=== PATIENT | male | born 1960 | race Caucasian/White ===

== ENCOUNTER 2025-02-01 07:17 | Outpatient (CLI) | payer MEDICARE, MEDICAID, SELFPAY ==
[2025-01-18 10:30] VITALS: BMI 31.7
--- NOTE | 2025-01-18 10:31 | PC.NURSE ---
Pre Radiology instructions Report to the outpatient cristóbal wilder on date _02/01/25____ at time ___7:30AM____ for procedure Time: __9:30AM__ YOU MAY BE MONITORED AT HOSPITAL FOR UP TO 4 HOURS AFTER YOUR PROCEDURE. A visitor will be allowed to accompany the patient into the hospital. You and your visitor will be asked to self-screen and do not enter if you have any COVID symptoms. A mask is OPTIONAL within the hospital. Patients are to have no food or drink 6 hours prior to procedure time Driving will be restricted after the procedure, you must have a person to drive you home. Labs will be drawn in preop area and once reviewed, you will be taken to radiology area for procedure. When the procedure is completed, you will be taken to outpatient where you will be monitored for several hours. You may have one visitor in this area. Other than holding anti-coagulants, patient may take other medication(s) as scheduled. Prior to your appointment date patients are instructed to hold anti-coagulants after discussing with ordering provider to stop. If unable to discontinue anti-coagulants please notify radiologist. ? No aspirin or warfarin (Coumadin) for 7 days prior to the procedure. ? No clopidogrel (Plavix), ticagrelor (Brilinta), prasugrel (Effient) or dabigatran (Pradaxa) for 5 days prior to the procedure. ? No rivaroxaban (Xarelto), apixaban (Eliquis), dipyridamole (Aggrenox or Persantine) or cilostazol (Pletal) for 2 days prior to the procedure. Medications to discontinue per physician: ___NONE Date to take last dose: Please leave all valuables, including medications, at home the day of procedure. The hospital will not accept responsibility for valuables. Wear comfortable, loose fitting clothing.? Follow any additional instructions given to you from ordering provider. Telephone instructions given to ____PATIENT and asked if any additional questions and then verbalized understanding. Patient advised to call scheduling provider office or registration scheduling [phone] if any additional questions.
--- NOTE | ~2025-02-01 | CT_ITS ---
EXAMINATION: [id number], CT lumbar spine wo con DATE: 02/01/2025 10:41 INDICATION: Cervical, thoracic and lumbar spinal canal stenosis TECHNIQUE: Informed consent was obtained from the patient. Risks and benefits including bleeding, infection and nerve root injury were discussed with the patient. The patient agreed to proceed. 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 Time out procedure was performed. The skin overlying the lower lumbar spine was sterilely prepped with Betadine. Entry sites were infiltrated with total of 4 cc 1% lidocaine. I nitial attempt was made with a 3.5 22G spinal needle advanced via central approach at the level of L 4. Despite attempts at repositioning bone was continually encountered. The needle was then removed an d attempt made again paracentral approach at the level of L5 which was again unsuccessful encounterin g bone. The needle was removed and sterile bandages were applied to the needle entry sites. The patie nt was transferred to the CT scanner for a cake mixer CT of the lumbar spine in order to identify a suitab le needle entry site. Computed tomography (CT) of the lumbar spine was performed without intravenous contrast. Automated ex posure control and iterative reconstruction technique were employed. The dose-length product was 1045 .00 mGy-cm. Coronal and sagittal reformatted images of the lumbar spine CT were created. Review of th e CT imaging demonstrated complete osseous coverage of the posterior aspect of the central canal thro ughout the lumbar and visualized lower thoracic spine with no evident potential needle entry site and therefore the planned myelogram was canceled. There are no immediate complications. FINDINGS: Instrumented T10-S1 posterior spinal fusion with bilateral vertical valentin and pedicle screws and bilate ral iliac screws. There is a fracture of the left iliac screw occurring at the level of the left sacr oiliac joint which is best appreciated on the lateral fluoroscopic image. There is also been prior L3 -L4, L4-L5 and L5-S1 anterior spinal fusion with interbody bone graft cages with associated screws. A dditional anterior spinal fusion with interbody fusion device at T11-T12. There is extensive solidly fused bone graft extending along the posterior elements from the highest visualized level on CT at T1 1-T12 through the sacrum which also extends across the midline where there been multiple prior shad ctomies. No opening identified in the posterior ossification to allow for needle access into the cent ral canal. There is 3 mm retrolisthesis L2 on L3. Alignment is otherwise normal. Chronic mild likely physiologic anterior wedging at T12 and L1. No acute fracture. Severe disc height loss at T12-L1, L1- L2 and L2-L3. There are hypertrophic endplate osteophytes posteriorly into mild central canal stenosi s at T12-L1, L1-L2 and L2-L3 minimal central canal stenosis at L3-L4. There is multilevel neural fora sathish stenosis, moderate on the left at T11-T12, mild to moderate bilaterally at T12-L1, mild bilater ally at L1-L2, moderate bilaterally at L2-L3 and mild on the right at L4-L5. Aside from the postopera tive scarring in the soft tissues posterior to the lumbar spine. Paravertebral soft tissues are other morales unremarkable. IMPRESSION: 1. Unsuccessful attempt at intrathecal contrast injection for planned CT myelogram due to solid osseo us covering of the posterior aspect of the lumbar and lower thoracic spine related to a prior instrum ented T10-S1 posterior spinal fusion. This was confirmed with CT imaging obtained in order to identif y potential access site. 2. Lumbar spondylosis with severe disc height loss at T12-L1 through L2-L3 with instrumented anterior spinal fusion on either side at T11-T12 and L3-S1. 3. Multilevel mild central canal stenosis and mild and moderate neural foraminal stenosis as detailed above. Reviewed, dictated and finalized at location A. IMPRESSION: 1. Unsuccessful attempt at intrathecal contrast injection for planned CT myelog herrera due to solid osseous covering of the posterior aspect of the lumbar and low er thoracic spine related to a prior instrumented T10-S1 posterior spinal fusio n. This was confirmed with CT imaging obtained in order to identify potential a ccess site. 2. Lumbar spondylosis with severe disc height loss at T12-L1 through L2-L3 with instrumented anterior spinal fusion on either side at T11-T12 and L3-S1. 3. Multilevel mild central canal stenosis and mild and moderate neural foramina l stenosis as detailed above.
--- OUTSIDE RECORDS SUMMARY | 2025-02-01 07:23 | XMS_ITS | Encounter Summary ---
Author Organization [facility] Address [address] [place] [address] Phone Care Team Providers Care Station Baggage Agent Name Role Phone Tip Stern MD Primary Care Provider [phone] Rolly Ceron MD Primary Care Provider Maurilio Jeter APRN, WASTEWATER T[employer]ATMENT PLANT ATTENDANT Unavailable [phone] Encounter Details Date Type Department Care Team (Late st Contact Info) Description 09/26/2020 Transcribe Orders [facility] Admitting [address] [place] [address] Rolly Ceron MD [address] [place] [address] Anxiety disorder, unspecified type (Primary Dx) Social History Tobacco Use Types Packs/Day Years Used Date Smoking Tobacco: Never Smokeless Tobacco: Never Alcohol Use Standard Drinks/Week Comments Yes 0 (1 standard drink = 0.6 oz pur e alcohol) every other day beer Sex and Gender Information Value Date Recorded Sex Assigned at Male 05/06/2023 9:59 AM CDT Legal Sex Male 10:24 PM CDT Gender Identity Male 05/06/2023 9:59 AM CDT Sexual Orientation Not on file documented as of this encounter Plan of Treatment Upcoming Encounters Date Type Department Care Team (Late st Contact Info) Description 02/16/2025 10:45 AM CDT Office Visit [facility] - General Surgery [facility] [address] [facility] [address] [place] [address] RosenthalMosesYadira February, PAC [address] [place] [address] Ubaldo Guerrero MD #[address] [facility] [address] [place] [address] 03/31/2025 1:20 PM CDT Lab [facility] Oncology Services [address] [facility] [id number] Rosenthal Yadira June, PAC [address] [place] [address] Discharge Disposition: Discharged to home or Selfcare 04/07/2025 2:20 PM CDT Office Visit [facility] On[facility] Services [address] [place] [address] RosenthalMosesYadira June, PAC [address] [place] [address] Discharge Disposition: Discharged to home or Selfcare Scheduled Orders Name Type Priority Associated Diagnoses Orde r Schedule COMPLETE BLOOD COUNT (CBC) WITHOUT DIFF Lab Routine Anxiety disorder, unspecified type Expected: 09/26/2020, Expires: 09/26/2021 CMP (COMPREHENSIVE METABOLIC PANEL) Lab Routine Anxiety disorder, unspecified type Expected: 09/26/2020, Expires: 09/26/2021 LIPID PANEL Lab Routine Anxiety disorder, unspecified type Expected: 09/26/2020, Expires: 09/26/2021 THYROID STIMULATING HORMONE (TSH) Lab Routine Anxiety disorder, unspecified type Expected: 09/26/2020, Expires: 09/26/2021 documented as of this encounter Visit Diagnoses Diagnosis Anxiety disorder, unspecified type- Primary documented in this encounter Care Teams Station Baggage Agent Relationship Specialty Start Date End Date Tip Stern MD [address] [place] [address] PCP - General Internal Medicine 01/08/17 10/10/20 Rolly Ceron MD [address] [facility] [address] [place] [address] PCP - General Internal Medicine 10/11/20 Maurilio Jeter, REGIONAL TRANSPORTATION MANAGER, WASTEWATER TREATMENT PLANT ATTENDANT [address] [place] [address] Nurse Practitioner Advanced Practice Nurse 12/30/24 documented as of this encounter
--- OUTSIDE RECORDS SUMMARY | 2025-02-01 07:23 | XMS_ITS | Encounter Summary ---
Author Organization [facility] Address [address] [facility] [place] [address] Phone Care Team Providers Care Legal Administrator Name Role Phone Rolly Ceron MD Primary Care Provider [phone] Maurilio Jeter APRN, HEAD BAGGAGE PORTER Unavailable Encounter Details Date Type Department Care Team (Late st Contact Info) Description 01/03/2025 Results Follow-Up [facility] Oncology Services [address] [place] [id number] Yadira Rosenthal Cynthia, PAC [address] [place] [address] FOLIC ACID (FOLATE), FERRITIN, CMP (COMPREHENSIVE METABOLIC PANEL), Additional followed-up results: 7 Social History Tobacco Use Types Packs/Day Years [...] Description 02/16/2025 10:45 AM CDT Office Visit [facility] - General Surgery [facility] #[address] [address] Yadira Rosenthal February, PAC [address] [place] [address] Ubaldo Guerrero MD #[address] [address] 03/31/2025 1:20 PM CDT Lab [facility] Oncology Services [address] [place] [phone] [facility] Yadira February, PAC [address] [place] [address] Discharge Disposition: Discharged to home or Selfcare 04/07/2025 2:20 PM CDT [facility] [address] [place] [address] [facility] Yadira February, PAC [address] [place] [address] Discharge Disposition: Discharged to home or Selfcare documented as of this encounter Visit Diagnoses Not on filedocumented in this encounter Care Teams Legal Administrator Relationship Specialty Start Date End Date Rolly Ceron MD [address] [place] [address] PCP - General Internal Medicine 10/11/20 Maurilio Jeter, GRAB JACK WORKER, HEAD BAGGAGE PORTER [address] [place] [address] Nurse Practitioner Advanced Practice Nurse 12/30/24 documented as of this encounter
--- OUTSIDE RECORDS SUMMARY | 2025-02-01 07:23 | XMS_ITS | Encounter Summary ---
Author Organization [facility] Address [address] [facility] [place] [address] Phone Care Team Providers Care Chief Architect Name Role Phone Rolly Ceron MD Primary Care Provider Maurilio Jeter APRN, MANAGER PUBLISHING Unavailable Reason for Visit * Reason Comments Medication Refill Encounter Details Date Type Department Care Team (Late st Contact Info) Description 12/19/2020 Refill [facility] - Internal Medicine [facility] [address] [place] [address] Tip Stern MD [address] [place] [address] Medication Refill Social History Tobacco Use Types Packs/Day Years [...] Description 02/16/2025 10:45 AM CDT [facility] #[address] [address] Yadira Rosenthal February, PAC [address] [place] [address] Ubaldo Guerrero MD #[address] [address] 03/31/2025 1:20 PM CDT Lab [facility] [address] [place] [phone] RosenthalYadira February, PAC [address] [place] [address] Discharge Disposition: Discharged to home or Selfcare 04/07/2025 2:20 PM CDT Office Visit [facility] Oncology Services [address] [place] [address] [place] February, PAC [address] [place] [address] Discharge Disposition: Discharged to home or Selfcare documented as of this encounter Visit Diagnoses Not on filedocumented in this encounter Care Teams Chief Architect Relationship Specialty Start Date End Date Rolly Ceron MD [address] [place] [address] PCP - General Internal Medicine 10/11/20 Maurilio Jeter, TRAVOGRAPH OPERATOR, MANAGER PUBLISHING [address] [place] [address] Nurse Practitioner Advanced Practice Nurse 12/30/24 documented as of this encounter
--- OUTSIDE RECORDS SUMMARY | 2025-02-01 07:24 | XMS_ITS | Clinical Summary ---
Author Organization [facility] Address [address] [place] [address] Phone Care Team Providers Care Antique Furniture Repairer Name Role Phone Rolly Ceron MD Primary Care Provider [phone] Maurilio Jeter APRN, DIRECTOR RECREATION Unavailable Allergies No known active allergies Medications citalopram (CELEXA) 20 MG TabletIndicati ons:once a day Indications: once a day Active metoprolol tartrate (LOPRESSOR) 50 MG TabletIndicati ons:once a day Take 1 Tab by mouth 2 times daily. 60 Tab 8 Active chlordiazePOXI DE (LIBRIUM) 10 MG Capsule Take 1 Cap by mouth 3 times daily as needed for Withdrawal. 15 Cap 8 Active ondansetron (ZOFRAN) 4 MG Tablet Take 1 Tab by mouth every 8 hours as needed for Nausea - 1st line. 10 Tab 9 Active Additional Information Patient not taking.Reported on 01/17/2025 citalopram (CeleXA) 20 MG Tablet Take 1 Tab by mouth daily. 30 Tab 0 Active Additional Information Patient not taking.Reported on 01/17/2025 omeprazole (PriLOSEC) 20 MG CAPSULE DELAYED RELEASE Take 1 Cap by mouth daily. 30 Cap 0 Active Additional Information Patient not taking.Reported on 01/17/2025 cloNIDine (CATAPRES) 0.1 MG Tablet Take 2 tablets, (0.2 mg) in the morning.Take 1 tablet, (0.1 mg) in the afternoon. 90 Tab 0 Active simvastatin (ZOCOR) 20 MG Tablet Take 1 tablet by mouth nightly 30 Tablet 1 Active amLODIPine (NORVASC) 5 MG Tablet Take 5 mg by mouth daily. 1 Active cyclobenzaprin e (FLEXERIL) 10 MG Tablet Take 10 mg by mouth. 3 Active ferrous sulfate 325 (65 Fe) MG Tablet Take 325 mg by mouth. 5 Active furosemide (LASIX) 20 MG Tablet Furosemide 20 MG Oral Tablet QTY: 20 tablet Days: 20 Refills: 0 Written: 01/13/23 Patient Instructions: 3 Active gabapentin (NEURONTIN) 600 MG Tablet Gabapentin 600 MG Oral Tablet QTY: 60 tablet Days: 30 Refills: 0 Written: 12/24/22 Patient Instructions: 3 Active hydroCHLOROthi azide 12.5 MG Tablet Take 12.5 mg by mouth. 5 Active pregabalin (LYRICA) 100 MG Capsule Take 100 mg by mouth 2 times daily. Active Cyanocobalamin (VITAMIN B 12 PO) Take by mouth daily. Active amLODIPine-shante azepril (LOTREL) 5-20 MG Capsule Take 1 Cap by mouth daily. 30 Cap 0 01/07/20 25 Discontin ued(Thera py completed ) Active Problems Problem Noted Date Diagnosed Date B12 deficiency 01/06/2025 Folic acid deficiency 01/06/2025 Iron deficiency anemia 12/30/2024 Colon cancer screening 12/30/2024 History of colon polyps 12/30/2024 DDD (degenerative disc disease), cervical 2023 Lumbar radiculopathy 01/22/2024 Fusion of lumbar spine 01/22/2024 Carcinoma of prostate 05/17/2021 Overview (12/30/2024): s/p radiation - stopped seeing urologist Hyperlipidemia Systemic hypertension Perirectal abscess Overview (07/29/2015): I&D 10/04/2014 Encounters Date Type Department Care Team Description 01/17/2025 11:10 AM CDT Lab [facility] [address] [address] LabRandy Lab/Ancillary Elevated PSA Discharge Disposition: Discharged to home or Selfcare 01/17/2025 10:00 AM CDT Office Visit [facility] [address] [place] [address] Maurilio Jeter, PHARMACEUTICAL OPERATOR, DIRECTOR RECREATION Elevated PSA (Primary Dx) Discharge Disposition: Discharged to home or Selfcare 01/17/2025 Results Follow-Up [facility] [address] [place] [address] Maurilio Jeter, PHARMACEUTICAL OPERATOR, DIRECTOR RECREATION PSA DIAGNOSTIC,TOTAL 01/17/2025 Travel 01/06/2025 2:20 PM CDT Office Visit [facility] [address] [place] [phone] Yadira Rosenthal, PAC Iron deficiency anemia, unspecified iron deficiency anemia type (Primary Dx); B12 deficiency; Folic acid deficiency Discharge Disposition: Discharged to home or Selfcare 01/06/2025 Travel 01/03/2025 Results Follow-Up [facility] [address] [place] [phone] Yadira Rosenthal, PAC FOLIC ACID (FOLATE), FERRITIN, CMP (COMPREHENSIVE METABOLIC PANEL), Additional followed-up results: 7 12/30/2024 11:00 AM CDT Lab [facility] [address] [place] [phone] Yadira Rosenthal, PAC Iron deficiency anemia, unspecified iron deficiency anemia type Discharge Disposition: Discharged to home or Selfcare 12/30/2024 10:20 AM CDT Initial Consult [facility] [address] [place] [phone] Yadira Rosenthal February, PAC Iron deficiency anemia, unspecified iron deficiency anemia type (Primary Dx); Colon cancer screening Discharge Disposition: Discharged to home or Selfcare 12/30/2024 Travel 12/06/2024 Telephone [facility] [address] [place] [address] Giovanni Dyer MD from Last 3 Months Immunizations Immunization Administration Dates Next Due Covid-19, Mrna, Lnp-s, Pf, 3 0 Mcg/0.3 Ml Dose (Pfizer) 02/09/2021 Covid-19, Mrna, Lnp-s, Pf, Parth-sucrose, 3 Mcg/0.3 Ml 09/05/2023 Hepatitis A Vaccine 12/29/2015 Hepatitis B Vaccine 02/29/2016 Influenza Vaccine 06/15/2015 Influenza Vaccine greater than 3 yrs 07/30/2020, 06/05/2014 Influenza Vaccine, Quadrivalent, PF 06/24,05/31/2021,06/16/2017,2015 Influenza, Injectable, Quadrivalent 07/06/2021,1 10/02/2019 Influenza, Recombinant, Quadrivalent,injectable, Pf 07/30/2020 Influenza, Seasonal, Injecta ble, Undefined 06/05/2014 Pneumococcal Vaccine Adult - 23 Valent 04/01/2017 TDAP Vaccine 01/23/2023,02/28/2016 Zoster Vaccine Recombinant 03/27/2023,01/23/2023 Social History Tobacco Use Types Packs/Day Years Used Date Smoking Tobacco: Never Smokeless Tobacco: Never Tobacco Cessation:Counseling Given: No Alcohol Use Standard Drinks/Week Comments Yes 0 (1 standard drink = 0.6 oz pur e alcohol) every other day beer Sex and Gender Information Value Date Recorded Sex Assigned at Male 05/06/2023 9:59 AM CDT Legal Sex Male 10:24 PM CDT Gender Identity Male 05/06/2023 9:59 AM CDT Sexual Orientation Not on file Last Filed Vital Signs Vital Sign Reading Time Taken Comments Blood Pressure 128/66 01/17/2025 10:16 AM CDT Pulse 83 01/17/2025 10:16 AM CDT Temperature 36.7 C (98 F) 01/17/2025 10:16 AM CDT Respiratory Rate 14 01/17/2025 10:16 AM CDT Oxygen Saturation 99% 01/17/2025 10:16 AM CDT Inhaled Oxygen Concentration - - Weight 92.1 kg (203 lb) 01/17/2025 10:16 AM CDT Height 170.2 cm (5' 7 ) 01/17/2025 10:16 AM CDT Body Mass Index 31.79 01/17/2025 10:16 AM CDT Plan of Treatment Upcoming Encounters Date Type Department Care Team (Late st Contact Info) Description 02/16/2025 10:45 AM CDT Office Visit [facility] - General [facility] [address] [phone] Yadira Rosenthal February, PAC [address] [place] [address] Ubaldo Guerrero MD #[address] [address] 03/31/2025 1:20 PM CDT Lab [facility] [address] [place] [address] RosenthalMashafebruary, PAC [address] [place] [address] Discharge Disposition: Discharged to home or Selfcare 04/07/2025 2:20 PM CDT Office Visit [facility] [address] [place] [phone] RosenthalYadira February, PAC [address] [place] [address] Discharge Disposition: Discharged to home or Selfcare Health Maintenance Due Date Last Done Comments Hepatitis C Virus (HCV) Screening 1960 Colonoscopy 11/24/2003 Colorectal Cancer Screening 11/24/2003 Cologuard 2008 Immunochemical Fecal Occult Blood 2008 Hepatitis B Immunization (2 of 3 - 19+ 3-dose series) 03/28/2016 02/29/2016 SARS-COV-2 Immunization (5 - Pfizer risk season) 2024 05/25/2024, 09/05/2023, 10/09/2021, Additional history exists Td Immunization Every 10 Years (Adults With 1 Tdap) 01/23/2033 01/23/2023, 02/28/2016 DTaP/Tdap/Td Immunization Discontinued 01/23/2023, 04/2016 Zoster Immunization Completed 03/27/2023, Pneumococcal Immunization (50+ years) Completed 02/10/2024, 04/01/2017 Pneumococcal Immunization Combined Discontinued 02/10/2024, 04/01/2017 Respiratory Syncytial Virus (RSV) Immunization (Adult) Completed 03/08/2024 Influenza Immunization Completed , 06/04/2023, 07/21/2022, Additional history exists PSA Discussion Completed 01/17/2025, 12/21, 01/08/2017 Human Papillomavirus (HPV) Immunization Aged Out No longer eligible based on patient's age to complete this topic Meningococcal Immunization (ACWY) Aged Out No longer eligible based on patient's age to complete this topic Rotavirus Immunization Aged Out No lo nger eligible based on patient's age to complete this topic Procedures Procedure Name Priority Date/Time Associated Diagnosis Comments PSA DIAGNOSTIC,TOTAL Routine 01/17/2025 10:53 AM CDT Elevated PSA JOSEFA,POST-VOID RES,US,NON-IMAGING Routine 01/17/2025 10:00 AM CDT Elevated PSA CBC WITH AUTO DIFFERENTIAL Routine 12/30/2024 11:02 AM CDT Iron deficiency anemia, unspecified iron deficiency anemia type IRON,TRANSFERN,CALC.TIB C,%SAT Routine 12/30/2024 11:02 AM CDT Iron deficiency anemia, unspecified iron deficiency anemia type IMMUNOFIXATION W/ ELECTROPHORESIS SERUM Routine 12/30/2024 11:02 AM CDT Iron deficiency anemia, unspecified iron deficiency anemia type FREE KAPPA & LAMBDA LIGHT CHAINS SERUM Routine 12/30/2024 11:02 AM CDT Iron deficiency anemia, unspecified iron deficiency anemia type LACTATE DEHYDROGENASE (LD) Routine 12/30/2024 11:02 AM CDT Iron deficiency anemia, unspecified iron deficiency anemia type RETICULOCYTE COUNT (RETIC) Routine 12/30/2024 11:02 AM CDT Iron deficiency anemia, unspecified iron deficiency anemia type VITAMIN B12 Routine 12/30/2024 11:02 AM CDT Iron deficiency anemia, unspecified iron deficiency anemia type COMPLETE BLOOD COUNT (CBC) WITH DIFF Routine 12/30/2024 11:02 AM CDT Iron deficiency anemia, unspecified iron deficiency anemia type CMP (COMPREHENSIVE METABOLIC PANEL) Routine 12/30/2024 11:02 AM CDT Iron deficiency anemia, unspecified iron deficiency anemia type FERRITIN Routine 12/30/2024 11:02 AM CDT Iron deficiency anemia, unspecified iron deficiency anemia type FOLIC ACID (FOLATE) Routine 12/30/2024 1 1:02 AM CDT Iron deficiency anemia, unspecified iron deficiency anemia type from Last 3 Months Results * (ABNORMAL) PSA DIAGNOSTIC,TOTAL (01/17/2025 10:53 AM CDT) PSA, TOTAL (PROSTATIC SPECIFIC ANTIGEN) 4.92(H) <4.00 ng/mL 01/17/2025 1:21 PM CDT [facility] Blood Venipuncture / Unknown 01/17/2025 10:53 AM CDT 01/17/2025 10:53 AM CDT Narrative [facility] - 01/17/2025 1:21 PM CDT PSA NOTE: The PSA value should be used in conjunction with information available from clinical evaluation and other diagnostic procedures. The ALINITY Total PSA assay is a Chemiluminescent Microparticle Immunoassay (CMIA) for the quantitative determination of total PSA (both free PSA and PSA complexed to [id number]) in human serum. Total PSA values obtained with different assay methods, including See PSA assays, cannot be used interchangeably. us Maurilio Jeter APRN, DIRECTOR RECREATION CHEMISTRY ORDERABLES F inal Result Performing Organization Address [facility] Co de Phone Number [facility] [place] [address] * JOSEFA,POST-VOID RES,US,NON-IMAGING (01/17/2025 10:00 AM CDT) Narrative [facility] - 01/17/2025 10:00 AM CDT [facility] 01/17/2025 10:34 AM POCT Bladder Scan collected per standing order of Manuel Jeter on 01/17/2025 PVR= 161 ML us Maurilio Jeter APRN, DIRECTOR RECREATION [place] - SURGERY Final Result * IRON,TRANSFERN,CALC.TIBC,%SAT (12/30/2024 11:02 AM CDT) IRON 117 31 - 144 mcg/dL 12/30/2024 1:02 PM CDT [facility] TRANSFERRIN 220 163 - 344 mg/dL 12/30/2024 1:02 PM CDT [facility] TIBC, CALCULATED 275 261 - 462 mcg/dL 12/30/2024 1:02 PM CDT [facility] % SATURATION * 43 15 - 62 % 12/30/2024 1:02 PM CDT [facility] Blood Venipuncture / Unknown 12/30/2024 11:02 AM CDT 12/30/2024 11:02 AM CDT Yadira Rosenthal PAC CHEMISTRY ORDERABLES Swati l Result [facility] [address] [place] [address] * (ABNORMAL) CBC WITH AUTO DIFFERENTIAL (12/30/2024 11:02 AM CDT) WBC 4.63 4.00 - 12.00 10(3)/mcL 12/30/2024 11:36 AM CDT [facility] RBC 4.11(L) 4.40 - 5.80 10(6)/mcL 12/30/2024 11:36 AM CDT [facility] HEMOGLOBIN (HGB) 12.5(L) 13.0 - 16.5 g/dL 12/30/2024 11:36 AM CDT [facility] HEMATOCRIT (HCT) 36.8(L) 38.0 - 50.0 % 12/30/2024 11:36 AM CDT [facility] MCV 89.5 82.0 - 96.0 fL 12/30/2024 11:36 AM CDT [facility] MCH 30.4 26.0 - 32.0 pg 12/30/2024 11:36 AM CDT [facility] MCHC 34.0 31.0 - 36.0 g/dL 12/30/2024 11:36 AM CDT [facility] PLATELET COUNT 241 140 - 440 10(3)/mcL 12/30/2024 11:36 AM CDT [facility] RDW 19.1(H) 11.8 - 15.5 % 12/30/2024 11:36 AM CDT [facility] MPV 9.1 8.0 - 12.6 fL 12/30/2024 11:36 AM CDT [facility] NEUTROPHILS 69.6(H) 40.0 - 68.0 % 12/30/2024 11:36 AM CDT [facility] LYMPHOCYTES 16.0(L) 19.0 - 49.0 % 12/30/2024 11:36 AM CDT [facility] MONOCYTES 11.2 3.0 - 13.0 % 12/30/2024 11:36 AM CDT [facility] EOSINOPHILS 2.6 0.0 - 8.0 % 12/30/2024 11:36 AM CDT [facility] BASOPHILS 0.6 0.0 - 1.0 % 12/30/2024 11:36 AM CDT [facility] ABSOLUTE NEUTROPHILS 3.22 1.40 - 5.30 10(3)/mcL 12/30/2024 11:36 AM CDT [facility] ABSOLUTE LYMPHOCYTES 0.74(L) 0.90 - 3.30 10(3)/[facility] 12/30/2024 11:36 AM CDT [facility] ABSOLUTE MONOCYTES 0.52 0.10 - 0.90 10(3)/[facility] 12/30/2024 11:36 AM CDT [facility] ABSOLUTE EOSINOPHIL 0.12 0.00 - 0.50 10(3)/[facility] 12/30/2024 11:36 AM CDT [facility] ABSOLUTE BASOPHILS 0.03 0.00 - 0.10 10(3)/[facility] 12/30/2024 11:36 AM CDT [facility] NRBC PER 100 WBC 0 12/31/19 25 11:36 AM CDT [facility] Blood Venipuncture / Unknown 12/30/2024 11:02 AM CDT 12/30/2024 11:02 AM CDT Yadira Rosenthal PAC HEMATOLOGY ORDERABLES Fin al Result [facility] [address] [place] [address] * (ABNORMAL) FREE KAPPA & LAMBDA LIGHT CHAINS SERUM (12/30/2024 11:02 AM CDT) Free [place] Lt Chn 22.09(H) 3.30 - 19.40 mg/L 12/31/2024 9:58 AM CDT [facility] Free Lambda Lt Chn 19.07 5.71 - 26.30 mg/L 12/31/2024 9:58 AM CDT [facility] free marquita victoria ratio 1.16 0.26 - 1.65 12/31/2024 9:58 AM CDT [facility] Blood Venipuncture / Unknown 12/30/2024 11:02 AM CDT 12/30/2024 11:02 AM CDT [facility] CHEMISTRY ORDERABLES Swati l Result [facility] [address] [place] [address], * VITAMIN B12 (12/30/2024 11:02 AM CDT) VITAMIN B12 377 213 - 816 pg/mL 12/30/2024 12:28 PM CDT [facility] Blood Venipuncture / Unknown 12/30/2024 11:02 AM CDT 12/30/2024 11:02 AM CDT [facility] CHEMISTRY ORDERABLES Swati l Result Performing Organization Address City/[facility]/ZIP Co de Phone Number [facility] [address] [place] [address] * RETICULOCYTE COUNT (RETIC) (12/30/2024 11:02 AM CDT) RETICULOCYTES 1.9 0.5 - 2.0 % 12/30/2024 11:36 AM CDT [facility] Blood Venipuncture / Unknown 12/30/2024 11:02 AM CDT 12/30/2024 11:02 AM CDT [facility] PAC HEMATOLOGY ORDERABLES Fin al Result [facility] [address] [place] [address] * (ABNORMAL) LACTATE DEHYDROGENASE (LD) (12/30/2024 11:02 AM CDT) Pathologist [facility] LDH 283(H) 125 - 220 U/L 12/30/2024 1:02 PM CDT [facility] Blood Venipuncture / Unknown 12/30/2024 11:02 AM CDT 12/30/2024 11:02 AM CDT us Yadira Rosenthal PAC CHEMISTRY ORDERABLES Swati l Result [facility] [address] [place] [address] * (ABNORMAL) IMMUNOFIXATION W/ ELECTROPHORESIS SERUM (12/30/2024 11:02 AM CDT) [facility] TOTAL PROTEIN 7.1 6.0 - 8.0 g/dL 01/03/2025 12:16 PM CDT [facility] % ALBUMIN 53.4(L) 55.8 - 66.7 % 01/03/2025 12:16 PM CDT [facility] ALBUMIN SERUM 3.8 2.5 - 5.4 g/dL 01/03/2025 12:16 PM CDT [facility] % ALPHA 1 GLOBULIN 3.2 2.9 - 4.9 % 01/03/2025 12:16 PM CDT [facility] ALPHA 1 0.2 0.2 - 0.4 g/dL 01/03/2025 12:16 PM CDT [facility] % ALPHA 2 GLOBULIN 10.5 7.1 - 11.8 % 01/03/2025 12:16 PM CDT [facility] ALPHA 2 0.7 0.5 - 1.0 g/dL 01/03/2025 12:16 PM CDT [facility] % BETA 14.5(H) 8.4 - 13.1 % 01/03/2025 12:16 PM CDT [facility] BETA-GLOBULIN 1.0 0.5 - 1.1 g/dL 01/03/2025 12:16 PM CDT [facility] % GAMMA GLOBULIN 18.5 11.1 - 18.8 % 01/03/2025 12:16 PM CDT [facility] GAMMA 1.3 0.7 - 1.5 g/dL 01/03/2025 12:16 PM CDT [facility] IMMUNOGLOBULIN G 1,385 540 - 1,822 mg/dL 01/03/2025 12:16 PM CDT [facility] IMMUNOGLOBULIN A 329 101 - 645 mg/dL 01/03/2025 12:16 PM CDT [facility] IMMUNOGLOBULIN M 51 22 - 240 mg/dL 01/03/2025 12:16 PM CDT [facility] INTERPRETATION SERUM No abnormal protein band is detected by serum protein electrophoresis. Serum immunofixation electrophoresis is negative for monoclonal immunoglobulins. Reviewed by Jose Larose, Ph.D. 01/03/2025 12:16 PM CDT [facility] A/G RATIO, SERUM 1.1 01/04/20 12:16 PM CDT [facility] Blood Venipuncture / Unknown 12/30/2024 11:02 AM CDT 12/30/2024 11:02 AM CDT Narrative [facility] - 01/03/2025 12:16 PM CDT Reviewed by Kylah Hernandez M.D. Yadira Rosenthal PAC CHEMISTRY ORDERABLES Swati l Result Performing Organization Address City/State/[facility] Co de Phone Number [facility] [address] [place] [address], * (ABNORMAL) FOLIC ACID (FOLATE) (12/30/2024 11:02 AM CDT) FOLATE 6.3(L) 7.0 - 31.4 ng/mL 12/30/2024 12:28 PM CDT [facility] IS THE PATIENT REQUIRED TO BE FASTING? No 12/30/2024 12:28 PM CDT [facility] Blood Venipuncture / Unknown 12/30/2024 11:02 AM CDT 12/30/2024 11:02 AM CDT [facility] PAC CHEMISTRY ORDERABLES Swati l Result Performing Organization Address City/[facility]/ZIP Co de Phone Number [facility] [address] [place] [address] * FERRITIN (12/30/2024 11:02 AM CDT) Pathologist [facility] FERRITIN 91 22 - 274 ng/mL 12/30/2024 1:20 PM CDT [facility] Blood Venipuncture / Unknown 12/30/2024 11:02 AM CDT 12/30/2024 11:02 AM CDT [facility] PAC CHEMISTRY ORDERABLES Swati l Result Performing Organization Address [facility]/ZIP Co de Phone Number [facility] [address] [place] [address] * (ABNORMAL) CMP (COMPREHENSIVE METABOLIC PANEL) (12/30/2024 11:02 AM CDT) Pathologist [facility] SODIUM 136 136 - 145 mmol/L 12/30/2024 1:02 PM CDT [facility] POTASSIUM 4.3 3.5 - 5.1 mmol/L 12/30/2024 1:02 PM CDT [facility] CHLORIDE 100 98 - 107 mmol/L 12/30/2024 1:02 PM CDT [facility] CO2, VENOUS 25 22 - 30 mmol/L 12/30/2024 1:02 PM CDT [facility] ANION GAP 15.3 <18.0 mmol/L 12/30/2024 1:02 PM CDT [facility] GLUCOSE 94 70 - 99 mg/dL 12/30/2024 1:02 PM CDT [facility] BUN 7(L) 8 - 26 mg/dL 12/30/2024 1:02 PM [facility] CREATININE, BLOOD 0.76 0.70 - 1.30 mg/dL 12/30/2024 1:02 PM [facility] BUN/CREATININE RATIO 9(L) 12 - 20 ratio 12/30/2024 1:02 PM [facility] TOTAL PROTEIN 7.5 6.0 - 8.0 g/dL 12/30/2024 1:02 PM [facility] ALBUMIN 3.9 3.5 - 5.0 g/dL 12/30/2024 1:02 PM [facility] A/G RATIO 1.1 1.0 - 2.2 12/30/2024 1:02 PM [facility] CALCIUM 8.9 8.7 - 10.5 mg/dL 12/30/2024 1:02 PM [facility] T BILI 0.4 0.2 - 1.2 mg/dL 12/30/2024 1:02 PM [facility] SGOT (AST) 59(H) <43 U/L 12/30/2024 1:02 PM [facility] SGPT (ALT) 49 <56 U/L 12/30/2024 1:02 PM [facility] ALKALINE PHOSPHATASE 142 40 - 150 U/L 12/30/2024 1:02 PM [facility] IS THE PATIENT REQUIRED TO BE FASTING? No 12/30/2024 1:02 PM [facility] GFR, ESTIMATED >60 >=60 12/30/2024 1:02 PM [facility] Comment: Creatinine Clearance is the preferred criteria for selecting drug dose adjustments in renally impaired patients. The GFR is provided as additional pertinent clinical information. GFR is reported in mL/min/1.73 sq m. Calculation based on the Chronic Kidney Disease Epidemiology Collaboration (CKD- EPI) equation refit without adjustment for race. GFR, EST. >60 >=60 025 1:02 PM [facility] GFR, EST. NONAFRICAN >60 >=60 12/30/2024 1:02 PM CDT [facility] Blood Venipuncture / Unknown 12/30/2024 11:02 AM CDT 12/30/2024 11:02 AM CDT us Yadira Rosenthal PAC CHEMISTRY ORDERABLES Swati l Result [facility] [address] [place] [address] from Last 3 Months Insurance [place], [place] [id number] MEDICARE Care Teams Antique Furniture Repairer Relationship Specialty Start Date End Date Rolly Ceron MD [address] [place] [address] PCP - General Internal Medicine 10/11/20 Maurilio Jeter, PHARMACEUTICAL OPERATOR, DIRECTOR RECREATION [address] [place] [address] Nurse Practitioner Advanced Practice Nurse 12/30/24
--- OUTSIDE RECORDS SUMMARY | 2025-02-01 07:24 | XMS_ITS | Encounter Summary ---
Author Organization [facility] Address [address] [place] [address] Phone Care Team Providers Care Post Acute Care Nurse Name Role Phone Rolly Ceron MD Primary Care Provider Maurilio Jeter APRN, CNP Unavailable [phone] Reason for Referral * Radiology Services (Routine) - Authorized Specialty Diagnoses / Procedures Referred By Contac t Referred To Contact Radiology Diagnoses Elevated PSA Procedures MRI PELVIS W/WO CONTRAST Maurilio Jeter APRN, CNP [address] [place] [address] Phone: tel: fax: Referral ID Status Reason Start Date Expiration Date V isits Requested Visits Authorized [id number] Authorized 01/17/2025 1 1 Encounter Details Date Type Department Care Team (Late st Contact Info) Description 01/17/2025 Results Follow-Up [facility] [address] [place] [id number] Maurilio Jeter APRN, CNP [address] [place] [address] PSA DIAGNOSTIC,TOTAL Social History Tobacco Use Types Packs/Day Years [...] Description 02/16/2025 10:45 AM CDT Office Visit [facility] Medical [facility] - General Surgery [facility] [address] [address] Yadira Rosenthal February, PAC [address] [place] [address] Ubaldo Guerrero MD [address] [address] 03/31/2025 1:20 PM CDT [facility] [address] [place] [address] [facility] Yadira February, PAC [address] [place] [address] Discharge Disposition: Discharged to home or Selfcare 04/07/2025 2:20 PM CDT Office Visit [facility] [address] [place] [address] RosenthalYadira February, PAC [address] [place] [address] Discharge Disposition: Discharged to home or Selfcare Scheduled Orders Name Type Priority Associated Diagnoses Orde r Schedule MRI PELVIS W/WO CONTRAST Imaging Routine Elevated PSA Expected: 01/17/2025, Expires: 04/18/2025 documented as of this encounter Visit Diagnoses Diagnosis Elevated PSA- Primary Elevated prostate specific antigen (PSA) documented in this encounter Care Teams Post Acute Care Nurse Relationship Specialty Start Date End Date Rolly Ceron MD [address] [facility] [address] [place] [address] PCP - General Internal Medicine 10/11/20 Maurilio Jeter APRN, [employer] [address] [place] [address] Nurse Practitioner Advanced Practice Nurse 12/30/24 documented as of this encounter
--- OUTSIDE RECORDS SUMMARY | 2025-02-01 07:24 | XMS_ITS | Data Portability ---
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 ProBNP normal. We will hold off on addition of loop diuretics at this juncture. Discussed regarding sleep apnea evaluation which patient wishes to hold off given no reported symptoms of MINISTERIO per his judgment. Obtain echocardiogram to assess progression of pulmonary hypertension. Dyspnea on exertion: Intermediate pretest probability for CAD with risk factor profile as outlined previously. Reports inability to exercise secondary to orthopedic limitations. Obtain pharmacologic stress test for ischemic risk stratification. Red flag symptoms in the interim discussed. Hypertension: BP within normal range in clinic. Continue current dose of HCTZ, irbesartan and clonidine. At follow-up visits, will consider attempts at weaning off clonidine if feasible. Mixed hyperlipidemia : Continue simvastatin 20 mg daily managed per primary care team. Plan close interval follow-up with the above-mentioned evaluation. On behalf of [facility] Cardiology, we appreciate the opportunity to participate in the care of your patient. Please feel free to reach out to us for any questions regarding this patient's cardiac care. Robin Hastings MD, [facility] Cardiology [email or web address] Not available 12/14/2024 12:53:31 Plan of Treatment Reminders Order Date Submit Date Provider Last Modified By Organization Details Last Modified Time Details Appointments ANY 15 2024 11:00A M SOLA [email or web address] Not available Not available Not available Lab cobalam in and folate panel, serum 2024 025 [facility], [address] [place] [address], [place], [address], 12/23/2024 17:19:31 thiamin e, QN, blood 2024 025 [place] [facility], [address] [place] [address], [place], [address], 12/04/2024 03:08:41 TSH + free T4, serum 2024 025 [facility], [address] [place] [address], [place], [address], 12/23/2024 17:19:32 CBC w/ auto diff 2024 025 [facility], [address] [place] [address], [place], [address], 12/23/2024 17:19:32 iron + total iron-bi nding capacit y (TIBC), serum 2024 025 [facility], [address] [place] [address], [place], [address], 12/23/2024 17:19:32 ferriti n, serum or plasma 2024 025 [facility], [address] [place] [address], [place], [address], 12/23/2024 17:19:32 PSA, total, serum or plasma 2024 025 [facility], [address] [place] [address], [place], [address], 12/23/2024 17:19:32 BNP (B-type natriur etic peptide ), serum or plasma 2024 025 [facility], [address] [place] [address], [place], [address], 12/23/2024 17:19:31 magnesi um, serum or plasma 2024 025 [facility], [address] [facility] [address], [place], [address], 12/23/2024 17:19:31 fecal occult blood, immunoa ssay, stool 2024 025 [email or web address] [facility], [address] [facility] [address], [place], [address], 01/18/2025 14:25:59 CMP, serum or plasma 2024 025 [email or web address] [facility], [address] [facility] [address], [place], [address], 12/23/2024 17:19:31 drug screen, urine 2024 025 [place] In-Office Order, Internal Use Only DO Not Attach Compendium DO Not Attach Compendium, Do Not Delete/merge, [id number] 2024 13:09:23 Referral cardiol ogist referra l 2024 025 Robin Hastings MD, [address], [place], [address], 12/16/2024 17:22:18 pain managem ent referra l 2024 025 nuria Blum, [address] [facility] [address] [facility] [address], [address], 12/31/2024 15:00:06 Procedures None recorde d. Surgeries None recorde d. Imaging electro cardiog herrera 2024 025 In-Office Order, Internal Use Only DO Not Attach Compendium DO Not Attach Compendium, Do Not Delete/merge, [id number] 12/14/2024 11:21:54 SPECT, myocard ial perfusi on, multipl e - Lexisca n 2024 025 [facility], [address] [place], [address], 01/11/2025 10:29:57 US, echocar diogram , transth oracic, complet e, w/ color flow 2024 025 [facility], [address] [place], [address], 01/28/2025 04:17:27 US, screeni ng for abdomin al aortic aneurys m 2024 025 [facility], [address] [place], [address], 12/30/2024 11:14:25 Medication Orders duloxet ine 60 mg capsule ,delaye d release 2024 025 [facility], [place], [address], 01/10/2025 11:44:32 hydroch lorothi azide 12.5 mg tablet [address] [facility] [address], [place], [address], 01/10/2025 11:40:43 permeth rin 5 % topical cream 2024 025 [facility] [address], [place], [address], 01/10/2025 11:44:33 cephale myron 500 mg capsule [address] [facility] [address], [place], [address], 12/24/2024 11:26:04 hydroch lorothi azide 12.5 mg tablet [address] [facility] [address], [place], [address], 12/24/2024 11:13:56 triamci nolone acetoni de 0.1 % topical ointmen t 2024 025 [facility] [address], [place], [address], 12/01/2024 14:15:47 pregaba myron 100 mg capsule 2024 025 [facility] [address], [address], [place], [address], 2024 13:30:32 Patient TargetsNo targets recorded. Patient Instructions Encounter Date Encounter Id Patient Instructions Last Modified By Organization Details Last Modified Time 09/06/2024 [id number] f/u in 4month nsuthan Not available 1 11/07/2023 12:12:40 2024 [id number] Plan of care has been discussed with patient including expected therapeutic benefits and potential side effects of prescribed medication and treatments. Patient verbalizes understanding and is in agreement with the plan of care. Patient was instructed to keep all scheduled appointments and contact the clinic for any additional problems. [email or web address] Not available 2024 17:16:01 12/01/2024 [id number] substance use disorder: care instructions Not available 12/01/2024 14:15:36 Plan of care has been discussed with patient including expected therapeutic benefits and potential side effects of prescribed medication and treatments. Patient verbalizes understanding and is in agreement with the plan of care. Patient was instructed to keep all scheduled appointments and contact the clinic for any additional problems. Health Maintenance: - CRC screening (45-75):Due at 45 years. colofit 2022 - Osteoporosis screening: Due at 65. - Lipid screening (>45 unless additional risk factors): 05/07/24 - HIV : declined - HepC: declined -Eye exam: unknown -Dental Exam: endentulous - Immunizations: - Influenza: Due. Patient reports he obtained - Prevnar 20: Due at 65. - Tdap/Td ([id number]): declined - Zoster (>60):Due at 60. - COVID-19: 10/09/21, 02/09/21, 01/19/21 - AAA screening (65-75): Due at 65. ordered - Prostate ca screening (>50 or >45 if AA, +FH; d/w patient): Due at 50. Ordered -Labs ordered this visit: Annual lab work ordered [email or web address] Not available 12/24/2024 11:27:27 12/14/2024 [id number] A healthy lifestyle: care instructions [email or web address] Not available 12/14/2024 12:52:00 01/10/2025 [id number] Plan of care has been discussed with patient including expected therapeutic benefits and potential side effects of prescribed medication and treatments. Patient verbalizes understanding and is in agreement with the plan of care. Patient was instructed to keep all scheduled appointments and contact the clinic for any additional problems. Health Maintenance: - CRC screening (45-75):Due at 45 years. colofit 2022 - Osteoporosis screening: Due at 65. - Lipid screening (>45 unless additional risk factors): 05/07/24 - HIV : declined - HepC: declined -Eye exam: unknown -Dental Exam: endentulous - Immunizations: - Influenza: Due. Patient reports he obtained - Prevnar 20: Due at 65. - Tdap/Td ([id number]): declined - Zoster (>60):Due at 60. - COVID-19: 10/09/21, 02/09/21, 01/19/21 - AAA screening (65-75): Due at 65. ordered - Prostate ca screening (>50 or >45 if AA, +FH; d/w patient): Due at 50. 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 Referring Physician: Family Dwayne Pineda, Encounter Date: 12/01/2024 Results Created Date Observation Date Name Description Value Unit Range Abnormal Flag Note LastModifiedBy Organization Detail LastModifiedTime 11/24/1911/23/2024 drug scree n, urine Methamphetam ine Negati ve Not Available In-Office Order Internal Use Only DO Not Attach Compendium DO Not Attach Compendium, Do Not Delete/merge, 2024 12:30:40 11/24/1911/23/2024 drug scree n, urine THC Negati ve Not Available In-Office Order Internal Use Only DO Not Attach Compendium DO Not Attach Compendium, Do Not Delete/merge, 2024 12:30:40 11/24/1911/23/2024 drug scree n, urine Cocaine ([place]) Negati ve Not Available In-Office Order Internal Use Only DO Not Attach Compendium DO Not Attach Compendium, Do Not Delete/merge, 2024 12:30:40 11/24/1911/23/2024 drug scree n, urine Benzodiazepi ne (Bzo) Negati ve Not Available In-Office Order Internal Use Only DO Not Attach Compendium DO Not Attach Compendium, Do Not Delete/merge, 2024 12:30:40 11/24/19 25 2024 drug scree n, urine Methadone (Mtd) Negati ve Not Available In-Office Order Internal Use Only DO Not Attach Compendium DO Not Attach Compendium, Do Not Delete/merge, 2024 12:30:40 11/24/19 25 2024 drug scree n, urine Buprenorphin e (Bup) Negati ve Not Available In-Office Order Internal Use Only DO Not Attach Compendium DO Not Attach Compendium, Do Not Delete/merge, 2024 12:30:40 11/24/1911/23/2024 drug scree n, urine Oxycodone (Oxy) Negati ve Not Available In-Office Order Internal Use Only DO Not Attach Compendium DO Not Attach Compendium, Do Not Delete/merge, 2024 12:30:40 11/24/1911/23/2024 drug scree n, urine Barbiturates (Bar) Negati ve Not Available In-Office Order Internal Use Only DO Not Attach Compendium DO Not Attach Compendium, Do Not Delete/merge, 2025 12:30:40 11/24/19 25 2024 drug scree n, urine MDMA (Ecstacy) Negati ve Not Available In-Office Order Internal Use Only DO Not Attach Compendium DO Not Attach Compendium, Do Not Delete/merge, 2024 12:30:40 11/24/19 25 2024 drug scree n, urine Amphetamines (Amp) Negati ve Not Available In-Office Order Internal Use Only DO Not Attach Compendium DO Not Attach Compendium, Do Not Delete/merge, 2024 12:30:40 11/24/19 25 2024 drug scree n, urine Opiates (opi) Negati ve Not Available In-Office Order Internal Use Only DO Not Attach Compendium DO Not Attach Compendium, Do Not Delete/merge, 2024 12:30:40 11/24/19 25 2024 drug scree n, urine Phencyclidin e (Pcp) Negati ve Not Available In-Office Order Internal Use Only DO Not Attach Compendium DO Not Attach Compendium, Do Not Delete/merge, 2024 12:30:40 11/24/19 25 2024 drug scree n, urine Tricyclic Antidepressa nts Negati ve Not Available In-Office Order Internal Use Only DO Not Attach Compendium DO Not Attach Compendium, Do Not Delete/merge, 2024 12:30:40 11/24/19 25 2024 drug scree n, urine Fentanyl Negati ve Not Available In-Office Order Internal Use Only DO Not Attach Compendium DO Not Attach Compendium, Do Not Delete/merge, 2024 12:30:40 12/02/19 25 12/02/2024 TSH+F REE T4 TSH 2.330 uIU/m L 0.450- 4.500 Not Available [facility] ([facility]) [address] [facility], [place], [address], 12/02/2024 04:10:36 12/02/19 12/02/2024 TSH+F REE T4 T4,free(dire ct) 1.08 NG/dL 0.82-1 .77 Not Available [facility] ([facility]) [address] [place], [address], 12/02/2024 04:10:36 12/02/19 25 12/02/2024 LIPID PANEL cholesterol, total 196 mg/dL 100-19 9 Not Available [facility] ([facility]) [address] [place], [address], 12/02/2024 04:10:37 12/02/19 25 12/02/2024 LIPID PANEL triglyceride s 98 mg/dL 0-149 Not Available [facility] ([facility]) [address] [place], [address], 12/02/2024 04:10:37 12/02/19 25 12/02/2024 LIPID PANEL HDL cholesterol 100 mg/dL >39 Not Available [facility] ([facility]) [address] [place], [address], 12/02/2024 04:10:37 12/02/19 25 12/02/2024 LIPID PANEL VLDL cholesterol tuyet 17 mg/dL 5-40 Not Available [facility] ([facility]) [address] [place], [address], 12/02/2024 04:10:37 12/02/19 25 12/02/2024 LIPID PANEL LDL chol calc ([facility] [[email or web address] 79 mg/dL 0-99 Not Available [facility] ([facility]) [address] [place], [address], 12/02/2024 04:10:37 12/02/19 25 12/02/2024 COMP. METAB OLIC PANEL (14) glucose 102 mg/dL 70-99 above high normal Not Available [facility] ([facility]) [address] [place], [address], 12/02/2024 04:10:39 12/02/19 25 12/02/2024 COMP. METAB OLIC PANEL (14) BUN 8 mg/dL 8-27 Not Available [facility] ([facility]) [address] [place], [address], 12/02/2024 04:10:39 12/02/19 25 12/02/2024 COMP. METAB OLIC PANEL (14) creatinine 0.90 mg/dL 0.76-1 .27 Not Available [facility] ([facility]) [address] [place], [address], 12/02/2024 04:10:39 12/02/19 25 12/02/2024 COMP. METAB OLIC PANEL (14) eGFR 94 mL/mi n/1.7 3 >59 Not Available [facility] ([facility]) [address] [place], [address], 12/02/2024 04:10:39 12/02/19 25 12/02/2024 COMP. METAB OLIC PANEL (14) BUN/creatini ne ratio 9 10-24 below low normal Not Available [facility] ([facility]) [address] [place], [address], 12/02/2024 04:10:39 12/02/19 25 12/02/2024 COMP. METAB OLIC PANEL (14) sodium 138 mmol/ L 134-14 4 Not Available [facility] ([facility]) [address] [place], [address], 12/02/2024 04:10:39 12/02/19 25 12/02/2024 COMP. METAB OLIC PANEL (14) potassium 4.5 mmol/ L 3.5-5. 2 Not Available [facility] ([facility]) [address] [place], [address], 12/02/2024 04:10:39 12/02/19 25 12/02/2024 COMP. METAB OLIC PANEL (14) chloride 100 mmol/ L 96-106 Not Available [facility] ([facility]) [address] [facility] [place], [address], 12/02/2024 04:10:39 12/02/19 25 12/02/2024 COMP. METAB OLIC PANEL (14) carbon dioxide, total 22 mmol/ L 20-29 Not Available [facility] ([facility]) [address] [facility], [place], [address], 12/02/2024 04:10:39 12/02/19 25 12/02/2024 COMP. METAB OLIC PANEL (14) calcium 8.9 mg/dL 8.6-10 .2 Not Available [facility] ([facility]) [address] [facility], [place], [address], 12/02/2024 04:10:39 12/02/19 25 12/02/2024 COMP. METAB OLIC PANEL (14) protein, total 7.4 g/dL 6.0-8. 5 Not Available [facility] ([facility]) [address] [facility] [place], [address], 12/02/2024 04:10:39 12/02/19 25 12/02/2024 COMP. METAB OLIC PANEL (14) albumin 4.2 g/dL 3.9-4. 9 Not Available [facility] ([facility]) [address] [facility] [place], [address], 12/02/2024 04:10:39 12/02/19 25 12/02/2024 COMP. METAB OLIC PANEL (14) globulin, total 3.2 g/dL 1.5-4. 5 Not Available [facility] ([facility]) [address] [facility] [place], [address], 12/02/2024 04:10:39 12/02/19 25 12/02/2024 COMP. METAB OLIC PANEL (14) bilirubin, total 0.4 mg/dL 0.0-1. 2 Not Available [facility] ([facility]) [address] [facility] [place], [address], 12/02/2024 04:10:39 12/02/19 25 12/02/2024 COMP. METAB OLIC PANEL (14) alkaline phosphatase 195 IU/L 44-121 above high normal Not Available [facility] ([facility]) [address] [facility] [place], [address], 12/02/2024 04:10:39 12/02/19 25 12/02/2024 COMP. METAB OLIC PANEL (14) AST (SGOT) 69 IU/L 0-40 above high normal Not Available [facility] ([facility]) [address] [facility] [place], [address], 12/02/2024 04:10:39 12/02/19 25 12/02/2024 COMP. METAB OLIC PANEL (14) ALT (SGPT) 53 IU/L 0-44 above high normal Not Available [facility] ([facility]) [address] [place], [address], 12/02/2024 04:10:39 12/02/19 25 12/02/2024 VITAM IN B12 AND FOLAT E vitamin B12 382 pg/mL 232-12 45 Not Available [facility] ([facility]) [address] [place], [address], 12/02/2024 04:10:40 12/02/19 25 12/02/2024 VITAM IN B12 AND FOLAT E folate (folic acid), serum 5.6 NG/mL >3.0 A serum folat e lola ntrat ion of less than 3.1 ng/mL is consi dered to repre sent clini tuyet defic iency . Not Available [facility] ([facility]) [address] [facility] [place], [address], 12/02/2024 04:10:40 12/02/19 25 12/02/2024 IRON AND TIBC iron bind.cap.(TI BC) 352 ug/dL 250-45 0 Not Available [facility] ([facility]) [address] [place], [address], 12/02/2024 04:10:42 12/02/19 25 12/02/2024 IRON AND TIBC UIBC 319 ug/dL 111-34 3 Not Available [facility] ([facility]) [address] [place], [address], 12/02/2024 04:10:42 12/02/19 25 12/02/2024 IRON AND TIBC iron 33 ug/dL 38-169 below low normal Not Available [facility] ([facility]) [address] [place], [address], 12/02/2024 04:10:42 12/02/19 25 12/02/2024 IRON AND TIBC iron saturation 9 % 15-55 alert low Not Available [facility] ([facility]) [address] [place], [address], 12/02/2024 04:10:42 12/02/1912/02/2024 HEMOG LOBIN A1C hemoglobin A1C 5.8 % 4.8-5. 6 above high normal Predi abete s: 5.7 - 6.4 Diabe malik: >6.4 Glyce lauren contr ol for adult s with diabe malik: <7.0 Not Available [facility] ([facility]) [address] [place], [address], 12/02/2024 04:10:43 12/02/1912/02/2024 MAGNE SIUM magnesium 2.3 mg/dL 1.6-2. 3 Not Available [facility] ([facility]) [address] [place], [address], 12/02/2024 04:10:45 12/02/19 25 12/02/2024 SOL TIN ferritin 31 NG/mL 30-400 Not Available [facility] ([facility]) [address] [facility], [place], [address], 12/02/2024 04:10:46 12/02/19 25 12/01/2024 CBC WITH DIFFE RENTI AL/PL ATELE T WBC 5.4 x10e3 /uL 3.4-10 .8 Not Available [facility] ([facility]) [address] [facility], [place], [address], 12/02/2024 04:10:48 12/02/19 25 12/01/2024 CBC WITH DIFFE RENTI AL/PL ATELE T RBC 4.14 x10e6 /uL 4.14-5 .80 Not Available [facility] ([facility]) [address] [facility], [place], [address], 12/02/2024 04:10:48 12/02/19 25 12/01/2024 CBC WITH DIFFE RENTI AL/PL ATELE T hemoglobin 11.5 g/dL 13.0-1 7.7 below low normal Not Available [facility] ([facility]) [address] [place], [address], 12/02/2024 04:10:48 12/02/19 25 12/01/2024 CBC WITH DIFFE RENTI AL/PL ATELE T hematocrit 36.1 % 37.5-5 1.0 below low normal Not Available [facility] ([facility]) [address] [place], [address], 12/02/2024 04:10:48 12/02/19 25 12/01/2024 CBC WITH DIFFE RENTI AL/PL ATELE T MCV 87 fL 79-97 Not Available [facility] ([facility]) [address] [place], [address], 12/02/2024 04:10:48 12/02/19 25 12/01/2024 CBC WITH DIFFE RENTI AL/PL ATELE T MCH 27.8 pg 26.6-3 3.0 Not Available [facility] ([facility]) [address] [facility], [place], [address], 12/02/2024 04:10:48 12/02/19 25 12/01/2024 CBC WITH DIFFE RENTI AL/PL ATELE T MCHC 31.9 g/dL 31.5-3 5.7 Not Available [facility] ([facility]) [address] [facility], [place], [address], 12/02/2024 04:10:48 12/02/19 25 12/01/2024 CBC WITH DIFFE RENTI AL/PL ATELE T RDW 15.6 % 11.6-1 5.4 above high normal Not Available [facility] ([facility]) [address] [facility], [place], [address], 12/02/2024 04:10:48 12/02/19 25 12/01/2024 CBC WITH DIFFE RENTI AL/PL ATELE T platelets 272 x10e3 /uL 150-45 0 Not Available [facility] ([facility]) [address] [facility], [place], [address], 12/02/2024 04:10:48 12/02/19 25 12/01/2024 CBC WITH DIFFE RENTI AL/PL ATELE T neutrophils 57 % notest ab. Not Available [facility] ([facility]) [address] [facility], [place], [address], 12/02/2024 04:10:48 12/02/19 25 12/01/2024 CBC WITH DIFFE RENTI AL/PL ATELE T lymphs 23 % notest ab. Not Available [facility] ([facility]) [address] [place], [address], 12/02/2024 04:10:48 12/02/19 25 12/01/2024 CBC WITH DIFFE RENTI AL/PL ATELE T monocytes 14 % notest ab. Not Available [facility] ([facility]) [address] [facility], [place], [address], 12/02/2024 04:10:48 12/02/19 25 12/01/2024 CBC WITH DIFFE RENTI AL/PL ATELE T eos 5 % notest ab. Not Available [facility] ([facility]) [address] [facility], [place], [address], 12/02/2024 04:10:48 12/02/19 25 12/01/2024 CBC WITH DIFFE RENTI AL/PL ATELE T basos 1 % notest ab. Not Available [facility] ([facility]) [address] [facility], [place], [address], 12/02/2024 04:10:48 12/02/19 25 12/01/2024 CBC WITH DIFFE RENTI AL/PL ATELE T neutrophils (absolute) 3.1 x10e3 /uL 1.4-7. 0 Not Available [facility] ([facility]) [address] [facility], [place], [address], 12/02/2024 04:10:48 12/02/19 25 12/01/2024 CBC WITH DIFFE RENTI AL/PL ATELE T lymphs (absolute) 1.2 x10e3 /uL 0.7-3. 1 Not Available [facility] ([facility]) [address] [place], [address], 12/02/2024 04:10:48 12/02/19 25 12/01/2024 CBC WITH DIFFE RENTI AL/PL ATELE T monocytes(ab solute) 0.7 x10e3 /uL 0.1-0. 9 Not Available [facility] ([facility]) [address] [place], [address], 12/02/2024 04:10:48 12/02/19 25 12/01/2024 CBC WITH DIFFE RENTI AL/PL ATELE T eos (absolute) 0.3 x10e3 /uL 0.0-0. 4 Not Available [facility] ([facility]) [address] [facility], [place], [address], 12/02/2024 04:10:48 12/02/19 25 12/01/2024 CBC WITH DIFFE RENTI AL/PL ATELE T baso (absolute) 0.1 x10e3 /uL 0.0-0. 2 Not Available [facility] ([facility]) [address] [place], [address], 12/02/2024 04:10:48 12/02/19 25 12/01/2024 CBC WITH DIFFE RENTI AL/PL ATELE T immature granulocytes 0 % notest ab. Not Available [facility] ([facility]) [address] [facility], [place], [address], 12/02/2024 04:10:48 12/02/19 25 12/01/2024 CBC WITH DIFFE RENTI AL/PL ATELE T immature grans (abs) 0.0 x10e3 /uL 0.0-0. 1 Not Available [facility] ([facility]) [address] [facility], [place], [address], 12/02/2024 04:10:48 12/02/1912/02/2024 PROST ATE-S PECIF IC AG prostate specific Ag 4.2 NG/mL 0.0-4. 0 above high normal Brianna ECLIA metho dolog y. Accor ding to the Ameri can [employer]rolo g[employer] iatio n, Serum PSA shoul d decre ase and remai n at undet ectab le level s after radic al prost atect jazmin. The AUA defin es bioch emica l recur rence as an initi al PSA value 0.2 ng/mL or great er follo wed by a subse quent confi rmato ry PSA value 0.2 ng/mL or great er. Value s obtai eladio with diffe rent assay metho ds or kits canno t be used inter doshi eably . Resul ts canno t be inter prete d as absol [place] evide nce of the prese nce or absen ce of evens morris se. Not Available [facility] ([facility]) [address] [facility], [place], [address], 12/02/2024 04:10:49 12/02/19 25 12/03/2024 VITAM IN B1 (THIA MINE) , BLOOD vit. B1, whole blood 72.1 nmol/ L 66.5-2 00.0 Not Available [facility] ([facility]) [address] [facility], [place], [address], 12/04/2024 03:08:41 12/02/1912/02/2024 B-TYP E NATRI URETI C PEPTI DE B-type natriuretic peptide 31.5 pg/mL 0.0-10 0.0 Sieme ns [facility] metho dolog y Not Available [facility] ([facility]) [address] [facility], [place], [address], 12/04/2024 03:08:42 12/31/1901/03/2025 Prote in elect ropho resis and Immun oglob ulins panel - Serum protein [mass/volume ] in serum or plasma 7.1 g/dL low: 6g/dLh igh: 8g/dL TOTAL PROTE IN 7.1 6.0 - 8.0 g/dL 01/03 12:16 PM CDT [facility] Not Available Not Available 01/07/2025 13:05:05 12/31/19 25 01/03/2025 Prote in elect ropho resis and Immun oglob ulins panel - Serum albumin/prot ein.total in serum or plasma by electrophore sis 53.4 % low: 55.8%h igh: 66.7% low % ALBUM IN 53.4 (L) 55.8 - 66.7 % 01/03 12:16 PM CDT [facility] Not Available Not Available 01/07/2025 13:05:05 12/31/19 25 01/03/2025 Prote in elect ropho resis and Immun oglob ulins panel - Serum albumin [mass/volume ] in serum or plasma by electrophore sis 3.8 g/dL low: 2.5g/d Lhigh: 5.4g/d L ALBUM IN SERUM 3.8 2.5 - 5.4 g/dL 01/03 12:16 PM CDT [facility] Not Available Not Available 01/07/2025 13:05:05 12/31/1901/03/2025 Prote in elect ropho resis and Immun oglob ulins panel - Serum alpha 1 globulin/pro tein.total in serum or plasma by electrophore sis 3.2 % low: 2.9%hi gh: 4.9% % ALPHA 1 GLOBU MYRON 3.2 2.9 - 4.9 % 01/03 12:16 PM CDT [facility] Not Available Not Available 01/07/2025 13:05:05 12/31/1901/03/2025 [facility] - Serum alpha 1 globulin [mass/volume ] in serum or plasma by electrophore sis 0.2 g/dL low: 0.2g/d Lhigh: 0.4g/d L ALPHA 1 0.2 0.2 - 0.4 g/dL 01/03 12:16 PM CDT [facility] Not Available Not Available 01/07/2025 13:05:05 12/31/1901/03/2025 Prote in elect ropho resis and Immun oglob ulins panel - Serum alpha 2 globulin/pro tein.total in serum or plasma by electrophore sis 10.5 % low: 7.1%hi gh: 11.8% % ALPHA 2 GLOBU MYRON 10.5 7.1 - 11.8 % 01/03 12:16 PM CDT [facility] Not Available Not Available 01/07/2025 13:05:05 12/31/19 25 01/03/2025 Prote in elect ropho resis and Immun oglob ulins panel - Serum alpha 2 globulin [mass/volume ] in serum or plasma by electrophore sis 0.7 g/dL low: 0.5g/d Lhigh: 1g/dL ALPHA 2 0.7 0.5 - 1.0 g/dL 01/03 12:16 PM CDT [facility] Not Available Not Available 01/07/2025 13:05:05 12/31/19 25 01/03/2025 [facility] - Serum beta globulin/pro tein.total in serum or plasma by electrophore sis 14.5 % low: 8.4%hi gh: 13.1% high % BETA 14.5 (H) 8.4 - 13.1 % 01/03 12:16 PM CDT [facility] Not Available Not Available 01/07/2025 13:05:05 12/31/1901/03/2025 [facility] - Serum beta globulin [mass/volume ] in serum or plasma by electrophore sis 1 g/dL low: 0.5g/d Lhigh: 1.1g/d L BETA- GLOBU MYRON 1.0 0.5 - 1.1 g/dL 01/03 12:16 PM CDT [facility] Not Available Not Available 01/07/2025 13:05:05 12/31/1901/03/2025 [facility] - Serum gamma globulin/pro tein.total in serum or plasma by electrophore sis 18.5 % low: 11.1%h igh: 18.8% % GAMMA GLOBU MYRON 18.5 11.1 - 18.8 % 01/03 12:16 PM CDT [facility] Not Available Not Available 01/07/2025 13:05:05 12/31/19 25 01/03/2025 Prote in elect ropho resis and Immun oglob ulins panel - Serum gamma globulin [mass/volume ] in serum or plasma by electrophore sis 1.3 g/dL low: 0.7g/d Lhigh: 1.5g/d L GAMMA 1.3 0.7 - 1.5 g/dL 01/03 12:16 PM CDT [facility] Not Available Not Available 01/07/2025 13:05:05 12/31/19 25 01/03/2025 Prote in elect ropho resis and Immun oglob ulins panel - Serum IgG [mass/volume ] in serum or plasma 1385 mg/dL low: 540mg/ dLhigh : 1822mg /dL IMMUN OGLOB ULIN G 1,385 540 - 1,822 mg/dL 01/03 12:16 PM CDT [facility] Not Available Not Available 01/07/2025 13:05:05 12/31/19 25 01/03/2025 Prote in elect ropho resis and Immun oglob ulins panel - Serum IgA [mass/volume ] in serum or plasma 329 mg/dL low: 101mg/ dLhigh : 645mg/ dL IMMUN OGLOB ULIN A 329 101 - 645 mg/dL 01/03 12:16 PM CDT [facility] Not Available Not Available 01/07/2025 13:05:05 12/31/19 25 01/03/2025 Prote in elect ropho resis and Immun oglob ulins panel - Serum IgM [mass/volume ] in serum or plasma 51 mg/dL low: 22mg/d Lhigh: 240mg/ dL IMMUN OGLOB ULIN M 51 22 - 240 mg/dL 01/03 12:16 PM CDT [facility] Not Available Not Available 01/07/2025 13:05:05 12/31/19 25 01/03/2025 Prote in elect ropho resis and Immun oglob ulins panel - Serum protein fractions [interpretat ion] in serum or plasma by immunofixati on No abnorm al protei n band is detect ed by serum protei n electr ophore sis. Serum immuno fixati on electr ophore sis is negati ve for monocl onal immuno globul ins. Review ed by Jose Larose, Ph.D. INTER PRETA TION SERUM No abnor mal prote in band is detec bell by serum prote in elect ropho resis . Serum immun ofixa tion elect ropho resis is negat franky for monoc lonal immun oglob ulins . Revie wed by Soila Larose, Ph.D. 01/03 12:16 PM CDT [facility] Not Available Not Available 01/07/2025 13:05:05 12/31/19 25 01/03/2025 Prote in elect ropho resis and Immun oglob ulins panel - Serum albumin/glob ulin [mass ratio] in serum or plasma by electrophore sis 1.1 A/G RATIO , SERUM 1.1 01/03 12:16 PM CDT [facility] Not Available Not Available 01/07/2025 13:05:05 12/31/19 25 01/03/2025 Prote in elect ropho resis and Immun oglob ulins panel - Serum Unknown Analyte Review ed by Kylah diaz M.D. Revie wed by Kylah lazaro i, M.D. Not Available Not Available 01/07/2025 13:05:05 12/31/19 25 01/03/2025 [facility] - Serum interpretati on and review of laboratory results Abnorm al Not Available Not Available 13:05:05 12/31/19 25 12/30/2024 Iron panel - Serum or Plasm a iron [mass/volume ] in serum or plasma 117 text: 31 - 144 mcg/dL IRON 117 31 - 144 mcg/d L 12/30 1:02 PM CDT [facility] Not Available Not Available 12/31/2024 12:19:52 12/31/1912/30/2024 Iron panel - Serum or Plasm a transferrin [mass/volume ] in serum or plasma 220 mg/dL low: 163mg/ dLhigh : 344mg/ dL TRANS SOL N 220 163 - 344 mg/dL 12/30 1:02 PM CDT [facility] Not Available Not Available 12/31/2024 12:19:52 12/31/19 25 12/30/2024 Iron panel - Serum or Plasm a iron binding capacity [mass/volume ] in serum or plasma 275 text: 261 - 462 mcg/dL TIBC, CALCU LATED 275 261 - 462 mcg/d L 12/30 1:02 PM [facility] Not Available Not Available 12/31/2024 12:19:52 12/31/1912/30/2024 Iron panel - Serum or Plasm a iron saturation [mass fraction] in serum or plasma 43 % low: 15%hig h: 62% % SATUR ATION * 43 15 - 62 % 12/30 1:02 PM CDT [facility] Not Available Not Available 12/31/2024 12:19:52 12/31/1912/30/2024 Iron panel - Serum or Plasm a interpretati on and review of laboratory results Normal Not Available Not Available 12/21 12:19:52 12/31/1912/30/2024 CBC W Auto Diffe renti al panel - Blood leukocytes [#/volume] in blood by automated count 4.63 text: 4.00 - 12.00 10(3)/ mcL WBC 4.63 4.00 - 12.00 10(3) /mcL 12/30 11:36 AM CDT [facility] Not Available Not Available 12/31/2024 12:19:52 12/31/1912/30/2024 CBC W Auto Diffe renti al panel - Blood erythrocytes [#/volume] in blood by automated count 4.11 text: 4.40 - 5.80 10(6)/ mcL low RBC 4.11 (L) 4.40 - 5.80 10(6) /mcL 12/30 11:36 AM CDT [facility] Not Available Not Available 12/31/2024 12:19:52 12/31/1912/30/2024 CBC W Auto Diffe renti al panel - Blood hemoglobin [mass/volume ] in blood 12.5 g/dL low: 13g/dL high: 16.5g/ dL low HEMOG LOBIN (HGB) 12.5 (L) 13.0 - 16.5 g/dL 12/30 11:36 AM CDT [facility] Not Available Not Available 12/31/2024 12:19:52 12/31/1912/30/2024 CBC W Auto Diffe renti al panel - Blood hematocrit [volume fraction] of blood by automated count 36.8 % low: 38%hig h: 50% low HEMAT OCRIT (HCT) 36.8 (L) 38.0 - 50.0 % 12/30 11:36 AM T [facility] Not Available Not Available 12/31/2024 12:19:52 12/31/1912/30/2024 CBC W Auto Diffe renti al panel - Blood MCV [entitic mean volume] in red blood cells by automated count 89.5 fL low: 82fLhi gh: 96fL MCV 89.5 82.0 - 96.0 fL 12/30 11:36 AM T [facility] Not Available Not Available 12/31/2024 12:19:52 12/31/1912/30/2024 CBC W Auto Diffe renti al panel - Blood MCH [entitic mass] by automated count 30.4 pg low: 26pghi gh: 32pg MCH 30.4 26.0 - 32.0 pg 12/30 11:36 AM T [facility] Not Available Not Available 12/31/2024 12:19:52 12/31/1912/30/2024 CBC W Auto Diffe renti al panel - Blood MCHC [entitic mass/volume] in red blood cells by automated count 34 g/dL low: 31g/dL high: 36g/dL MCHC 34.0 31.0 - 36.0 g/dL 12/30 11:36 AM T [facility] Not Available Not Available 12/31/2024 12:19:52 12/31/19 25 12/30/2024 CBC W Auto Diffe renti al panel - Blood platelets [#/volume] in blood 241 text: 140 - 440 10(3)/ mcL PLATE LET COUNT 241 140 - 440 10(3) /mcL 12/30 11:36 AM CDT [facility] Not Available Not Available 12/31/2024 12:19:52 12/31/19 25 12/30/2024 CBC W Auto Diffe renti al panel - Blood erythrocyte [distwidth] in red blood cells by automated count 19.1 % low: 11.8%h igh: 15.5% high RDW 19.1 (H) 11.8 - 15.5 % 12/30 11:36 AM CDT [facility] Not Available Not Available 12/31/2024 12:19:52 12/31/19 25 12/30/2024 CBC W Auto Diffe renti al panel - Blood platelet [entitic mean volume] in blood by automated count 9.1 fL low: 8fLhig h: 12.6fL MPV 9.1 8.0 - 12.6 fL 12/30 11:36 AM CDT [facility] Not Available Not Available 12/31/2024 12:19:52 12/31/1912/30/2024 CBC W Auto Diffe renti al panel - Blood neutrophils/ leukocytes in blood by automated count 69.6 % low: 40%hig h: 68% high NEUTR OPHIL S 69.6 (H) 40.0 - 68.0 % 12/30 11:36 AM CDT [facility] Not Available Not Available 12/31/2024 12:19:52 12/31/1912/30/2024 CBC W Auto Diffe renti al panel - Blood lymphocytes/ leukocytes in blood by automated count 16 % low: 19%hig h: 49% low LYMPH OCYTE S 16.0 (L) 19.0 - 49.0 % 12/30 11:36 AM CDT [facility] Not Available Not Available 12/31/2024 12:19:52 12/31/19 25 12/30/2024 CBC W Auto Diffe renti al panel - Blood monocytes/le ukocytes in blood by automated count 11.2 % low: 3%high : 13% MONOC YTES 11.2 3.0 - 13.0 % 12/30 11:36 AM CDT [facility] Not Available Not Available 12/31/2024 12:19:52 12/31/1912/30/2024 CBC W Auto Diffe renti al panel - Blood eosinophils/ leukocytes in blood by automated count 2.6 % low: 0%high : 8% EOSIN OPHIL S 2.6 0.0 - 8.0 % 12/30 11:36 AM [facility] Not Available Not Available 12/31/2024 12:19:52 12/31/1912/30/2024 CBC W Auto Diffe renti al panel - Blood basophils/le ukocytes in blood by automated count 0.6 % low: 0%high : 1% BASOP HILS 0.6 0.0 - 1.0 % 12/30 11:36 AM CDT [facility] Not Available Not Available 12/31/2024 12:19:52 12/31/1912/30/2024 CBC W Auto Diffe renti al panel - Blood neutrophils [#/volume] in blood by automated count 3.22 text: 1.40 - 5.30 10(3)/ mcL ABSOL [place] NEUTR OPHIL S 3.22 1.40 - 5.30 10(3) /mcL 12/30 11:36 AM CDT [facility] Not Available Not Available 12/31/2024 12:19:52 12/31/1912/30/2024 CBC W Auto Diffe renti al panel - Blood lymphocytes [#/volume] in blood by automated count 0.74 text: 0.90 - 3.30 10(3)/ mcL low ABSOL [place] LYMPH OCYTE S 0.74 (L) 0.90 - 3.30 10(3) /mcL 12/30 11:36 AM CDT [facility] Not Available Not Available 12/31/2024 12:19:52 12/31/19 25 12/30/2024 CBC W Auto Diffe renti al panel - Blood monocytes [#/volume] in blood by automated count 0.52 text: 0.10 - 0.90 10(3)/ mcL ABSOL [place] MONOC YTES 0.52 0.10 - 0.90 10(3) /mcL 12/30 11:36 AM CDT [facility] [employer] [facility] Not Available Not Available 12/31/2024 12:19:52 12/31/19 25 12/30/2024 CBC W Auto Diffe renti al panel - Blood eosinophils [#/volume] in blood by automated count 0.12 text: 0.00 - 0.50 10(3)/ mcL ABSOL [place] EOSIN OPHIL 0.12 0.00 - 0.50 10(3) /mcL 12/30 11:36 AM CDT [facility] [employer] [facility] Not Available Not Available 12/31/2024 12:19:52 12/31/19 25 12/30/2024 CBC W Auto Diffe renti al panel - Blood basophils [#/volume] in blood by automated count 0.03 text: 0.00 - 0.10 10(3)/ mcL ABSOL [place] BASOP HILS 0.03 0.00 - 0.10 10(3) /mcL 12/30 11:36 AM CDT [facility] [employer] [facility] Not Available Not Available 12/31/2024 12:19:52 12/31/19 25 12/30/2024 CBC W Auto Diffe renti al panel - Blood nucleated erythrocytes /leukocytes [ratio] in blood 0 NRBC PER 100 WBC 0 12/30 11:36 AM CDT [facility] [employer] [facility] Not Available Not Available 12/31/2024 12:19:52 12/31/19 25 12/30/2024 CBC W Auto Diffe renti al panel - Blood interpretati on and review of laboratory results Abnorm al Not Available Not Available 12:19:52 12/31/19 25 12/31/2024 Immun oglob ulin light chain s.giovanni e panel - Serum kappa light chains.free [mass/volume ] in serum 22.09 mg/L low: 3.3mg/ Lhigh: 19.4mg /L high Free Kaloko Lt Chn 22.09 (H) 3.30 - 19.40 mg/L 12/31 9:58 AM CDT [facility] Not Available Not Available 12/31/2024 12:19:52 12/31/1912/31/2024 Immun oglob ulin light chain s.giovanni e panel - Serum lambda light chains.free [mass/volume ] in serum or plasma 19.07 mg/L low: 5.71mg /Lhigh : 26.3mg /L Free Lambd a Lt Chn 19.07 5.71 - 26.30 mg/L 12/31 9:58 AM CDT [facility] Not Available Not Available 12/31/2024 12:19:52 12/31/1912/31/2024 Immun oglob ulin light chain s.giovanni e panel - Serum kappa light chains.free/ lambda light chains.free [mass ratio] in serum 1.16 low: 0.26hi gh: 1.65 free marquita victoria ratio 1.16 0.26 - 1.65 12/31 9:58 AM CDT [facility] Not Available Not Available 12/31/2024 12:19:52 12/31/1912/31/2024 Immun oglob ulin light chain s.giovanni e panel - Serum interpretati on and review of laboratory results Abnorm al Not Available Not Available 12:19:52 12/31/1912/30/2024 Cobal ordonez (Gaby min B12) [Mass /volu me] in Serum or Plasm a cobalamin (vitamin B12) [mass/volume ] in serum or plasma 377 pg/mL low: 213pg/ mLhigh : 816pg/ mL VITAM IN B12 377 213 - 816 pg/mL 12/30 12:28 PM CD[facility] Not Available Not Available 12/31/2024 12:19:52 12/31/19 25 12/30/2024 Cobal ordonez (Gaby min B12) [Mass /volu me] in Serum or Plasm a interpretati on and review of laboratory results Normal Not Available Not Available 12/21 12:19:52 12/31/1912/30/2024 Lacta te dehyd rogen ase [Enzy matic activ ity/v olume ] in Serum or Plasm a by Lacta te to pyruv ate react ion lactate dehydrogenas e [enzymatic activity/vol ume] in serum or plasma by lactate to pyruvate reaction 283 U/L low: 125U/L high: 220U/L high LDH 283 (H) 125 - 220 U/L 12/30 1:02 PM CDT [facility] Not Available Not Available 12/31/2024 12:19:52 12/31/1912/30/2024 Lacta te dehyd rogen ase [Enzy matic activ ity/v olume ] in Serum or Plasm a by Lacta te to pyruv ate react ion interpretati on and review of laboratory results Abnorm al Not Available Not Available 12:19:52 12/31/1912/30/2024 Folat e [Mass /volu me] in Serum or Plasm a folate [mass/volume ] in serum or plasma 6.3 NG/mL low: 7NG/mL high: 31.4NG /mL low FOLAT E 6.3 (L) 7.0 - 31.4 ng/mL 12/30 12:28 PM CDT [facility] Not Available Not Available 12/31/2024 12:19:52 12/31/1912/30/2024 Folat e [Mass /volu me] in Serum or Plasm a thermoactino myces vulgaris IgG Ab [mass/volume ] in serum No IS THE PATIE NT REQUI RED TO BE FASTI NG? No 12/30 12:28 PM CDT [facility] Not Available Not Available 12/31/2024 12:19:52 12/31/19 25 12/30/2024 Folat e [Mass /volu me] in Serum or Plasm a interpretati on and review of laboratory results Abnorm al Not Available Not Available 12:19:52 12/31/1912/30/2024 Sol tin [Mass /volu me] in Serum or Plasm a ferritin [mass/volume ] in serum or plasma 91 NG/mL low: 22NG/m Lhigh: 274NG/ mL OSL TIN 91 22 - 274 ng/mL 12/30 1:20 PM CDT [facility] Not Available Not Available 12/31/2024 12:19:52 12/31/1912/30/2024 Sol tin [Mass /volu me] in Serum or Plasm a interpretati on and review of laboratory results Normal Not Available Not Available 12/21 12:19:52 12/31/1912/30/2024 Compr ehens franky metab olic 1999 panel - Serum or Plasm a sodium [moles/volum e] in serum or plasma 136 mmol/ L low: 136mmo l/Lhig h: 145mmo l/L SODIU M 136 136 - 145 mmol/ L 12/30 1:02 PM CDT [facility] Not Available Not Available 12/31/2024 12:19:51 12/31/19 25 12/30/2024 Compr ehens franky metab olic 1999 panel - Serum or Plasm a potassium [moles/volum e] in serum or plasma 4.3 mmol/ L low: 3.5mmo l/Lhig h: 5.1mmo l/L POTAS SIUM 4.3 3.5 - 5.1 mmol/ L 12/30 1:02 PM CDT [facility] Not Available Not Available 12/31/2024 12:19:51 12/31/19 25 12/30/2024 Compr ehens franky metab olic 1999 panel - Serum or Plasm a chloride [moles/volum e] in serum or plasma 100 mmol/ L low: 98mmol /Lhigh : 107mmo l/L CHLOR PAM 100 98 - 107 mmol/ L 12/30 1:02 PM CDT [facility] Not Available Not Available 12/31/2024 12:19:51 12/31/19 12/30/2024 Compr ehens franky metab olic 1999 panel - Serum or Plasm a carbon dioxide, total [moles/volum e] in serum or plasma 25 mmol/ L low: 22mmol /Lhigh : 30mmol /L CO2, VENOU S 25 22 - 30 mmol/ L 12/30 1:02 PM CDT [facility] Not Available Not Available 12/31/2024 12:19:51 12/31/1912/30/2024 Compr ehens franky metab olic 1999 panel - Serum or Plasm a anion gap in serum or plasma by calculation 15.3 mmol/ L high: 18mmol /L ANION GAP 15.3 <18.0 mmol/ L 12/30 1:02 PM CDT [facility] [employer] [facility] Not Available Not Available 12/31/2024 12:19:51 12/31/19 25 12/30/2024 Compr [employer]ens franky metab olic 1999 panel - Serum or Plasm a glucose [mass/volume ] in serum or plasma 94 mg/dL low: 70mg/d Lhigh: 99mg/d L GLUCO SE 94 70 - 99 mg/dL 12/30 1:02 PM CDT [facility] [employer] [facility] Not Available Not Available 12/31/2024 12:19:51 12/31/1912/30/2024 Compr [employer]ens franky metab olic 1999 panel - Serum or Plasm a urea nitrogen [mass/volume ] in serum or plasma 7 mg/dL low: 8mg/dL high: 26mg/d L low BUN 7 (L) 8 - 26 mg/dL 12/30 1:02 PM CDT [facility] Not Available Not Available 12/31/2024 12:19:51 12/31/19 25 12/30/2024 Compr ehens franky metab olic 1999 panel - Serum or Plasm a creatinine [mass/volume ] in serum or plasma 0.76 mg/dL low: 0.7mg/ dLhigh : 1.3mg/ dL CREAT ININE , BLOOD 0.76 0.70 - 1.30 mg/dL 12/30 1:02 PM CDT [facility] [employer] [facility] Not Available Not Available 12/31/2024 12:19:51 12/31/19 25 12/30/2024 Compr ehens franky metab olic 1999 panel - Serum or Plasm a urea nitrogen/cre atinine [mass ratio] in serum or plasma 9 text: 12 - 20 ratio low BUN/C REATI NINE RATIO 9 (L) 12 - 20 ratio 12/30 1:02 PM CDT [facility] [employer] [facility] Not Available Not Available 12/31/2024 12:19:51 12/31/19 25 12/30/2024 Compr ehens franky metab olic 1999 panel - Serum or Plasm a protein [mass/volume ] in serum or plasma 7.5 g/dL low: 6g/dLh igh: 8g/dL TOTAL PROTE IN 7.5 6.0 - 8.0 g/dL 12/30 1:02 PM CD[facility] Not Available Not Available 12/31/2024 12:19:51 12/31/19 25 12/30/2024 Compr ehens franky metab olic 1999 panel - Serum or Plasm a albumin [mass/volume ] in serum or plasma 3.9 g/dL low: 3.5g/d Lhigh: 5g/dL ALBUM IN 3.9 3.5 - 5.0 g/dL 12/30 1:02 PM CDT [facility] [employer] [facility] Not Available Not Available 12/31/2024 12:19:51 12/31/19 25 12/30/2024 Compr ehens franky metab olic 1999 panel - Serum or Plasm a albumin/glob ulin [mass ratio] in serum or plasma 1.1 low: 1high: 2.2 A/G RATIO 1.1 1.0 - 2.2 12/30 1:02 PM CDT [facility] Not Available Not Available 12/31/2024 12:19:51 12/31/19 25 12/30/2024 Compr ehens franky metab olic 1999 panel - Serum or Plasm a calcium [mass/volume ] in serum or plasma 8.9 mg/dL low: 8.7mg/ dLhigh : 10.5mg /dL CALCI UM 8.9 8.7 - 10.5 mg/dL 12/30 1:02 PM CDT [facility] [employer] [facility] Not Available Not Available 12/31/2024 12:19:51 12/31/19 25 12/30/2024 Compr ens franky metab olic 1999 panel - Serum or Plasm a bilirubin.to kendrick [mass/volume ] in serum or plasma 0.4 mg/dL low: 0.2mg/ dLhigh : 1.2mg/ dL T BILI 0.4 0.2 - 1.2 mg/dL 12/30 1:02 PM CDT [facility] [employer] [facility] Not Available Not Available 12/31/2024 12:19:51 12/31/19 25 12/30/2024 Compr ens franky metab olic 1999 panel - Serum or Plasm a aspartate aminotransfe rase [enzymatic activity/vol ume] in serum or plasma 59 U/L high: 43U/L high SGOT (AST) 59 (H) <43 U/L 12/30 1:02 PM CDT [facility] [employer] [facility] Not Available Not Available 12/31/2024 12:19:51 12/31/19 25 12/30/2024 Compr ens franky metab olic 1999 panel - Serum or Plasm a alanine aminotransfe rase [enzymatic activity/vol ume] in serum or plasma 49 U/L high: 56U/L SGPT (ALT) 49 <56 U/L 12/30 1:02 PM CDT [facility] [employer] Not Available Not Available 12/31/2024 12:19:51 12/31/19 25 12/30/2024 Compr ehens franky metab olic 1999 panel - Serum or Plasm a alkaline phosphatase [enzymatic activity/vol ume] in serum or plasma 142 U/L low: 40U/Lh igh: 150U/L ALKAL INE PHOSP HATAS E 142 40 - 150 U/L 12/30 1:02 PM CDT [facility] Not Available Not Available 12/31/2024 12:19:51 12/31/1912/30/2024 Compr ehens franky metab olic 2000 panel - Serum or Plasm a IS the patient required to BE fasting? No IS THE PATIE NT REQUI RED TO BE FASTI NG? No 12/30 1:02 PM [facility] Not Available Not Available 12/31/2024 12:19:51 12/31/1912/30/2024 Compr ehens franky metab olic 2000 panel - Serum or Plasm a glomerular filtration rate [volume rate/area] in serum, plasma or blood by creatinine-b ased formula (CKD-epi 2020)/1.73 sq M low: 60 GFR, ESTIM ATED >60 >=60 12/30 1:02 PM [facility] Not Available Not Available 12/31/2024 12:19:51 12/31/1912/30/2024 Compr ehens franky metab olic 2000 panel - Serum or Plasm a glomerular filtration rate [volume rate/area] in serum, plasma or blood by creatinine-b ased formula (MDRD)/1.73 sq M among black population low: 60 GFR, EST. AFRIC AN >60 >=60 12/30 1:02 PM CDT [facility] Not Available Not Available 12/31/2024 12:19:51 12/31/1912/30/2024 Compr ehens franky metab olic 2000 panel - Serum or Plasm a glomerular filtration rate [volume rate/area] in serum, plasma or blood by creatinine-b ased formula (MDRD)/1.73 sq M among non black population low: 60 GFR, EST. NONAF RICAN >60 >=60 12/30 1:02 PM CDT [facility] Not Available Not Available 12/31/2024 12:19:51 12/31/19 25 12/30/2024 Compr ehens franky metab olic 2000 panel - Serum or Plasm a interpretati on and review of laboratory results Abnorm al Not Available Not Available 12:19:51 01/18/20 25 01/17/2025 Prost ate speci fic Ag [Mass /volu me] in Serum or Plasm a prostate specific Ag [mass/volume ] in serum or plasma 4.92 NG/mL high: 4NG/mL high PSA, TOTAL (PROS TATIC SPECI FIC ANTIG EN) 4.92 (H) <4.00 ng/mL 01/17 1:21 PM CDT [facility] Not Available Not Available 01/24/2025 18:30:07 01/18/20 25 01/17/2025 Prost ate speci fic Ag [Mass /volu me] in Serum or Plasm a Unknown Analyte PSA NOTE: The PSA value should be used in conjun ction with inform ation availa ble from clinic al evalua tion and other diagno stic proced ures. The ALINIT Y Total PSA assay is a Chemil umines cent Microp articl e Immuno assay (CMIA) for the quanti tative determ inatio n of total PSA (both free PSA and PSA comple xed to alpha- 1-anti chymot rypsin ) in human serum. Total PSA values obtain ed with differ ent assay method s, includ ing See PSA assays , cannot be used interc hangea monica. PSA NOTE: The PSA value shoul d be used in conju nctio n with infor matio n avail able from clini tuyet evalu ation and other diagn ostic proce dures . The ALINI TY Total PSA assay is a Chemi lumin escen t Micro parti ten Immun oassa y (CMIA ) for the quant itati ve deter minat ion of total PSA (both free PSA and PSA compl exed to alpha -1-an tichy motry psin) in human serum . Total PSA value s obtai eladio with diffe rent assay metho ds, inclu ding Abbot t PSA assay s, canno t be used inter doshi eably . Not Available Not Available 01/24/2025 18:30:07 01/18/20 25 01/17/2025 Prost ate speci fic Ag [Mass /volu me] in Serum or Plasm a interpretati on and review of laboratory results Abnorm al Not Available Not Available 18:30:07 12/15/1912/14/2024 elect braydon covarrubias am No observ ation record ed. [place] In-Office Order Internal Use Only DO Not Attach Compendium DO Not Attach Compendium, Do Not Delete/merge, [id number] 12/14/2024 11:54:13 12/15/19 elect braydon lougr am No observ ation record ed. Not Available 2024 17:44:14 Result Notes None recorded. Problems Name Problem SNOMED Code Status Onset Date Resolution Date Notes Provider Name and Address Organization Details Recorded Time Essential hypertensi on 48732766 Active 2020 Rolly Ceron MD Attn: Rufina villalpando,[address] [place], [address], [facility] - [facility] 2 12:02:01 Hyperlipid emia 38546100 Active 2020 Rolly Ceron MD Attn: Rufina villalpando,[address] [place], [address], [place] - [facility] 2 12:02:01 Chronic anxiety 215217238 Active 2020 Rolly Ceron MD Attn: Rufina villalpando,[address] [place], [address], [place] [facility] 2 12:02:01 Generalize d aches and pains 13044870 Active 2020 with h/o back sx in the past Rolly Ceron MD Attn: Rufina villalpando,[address] [place], [address], [place] [facility] 2 12:02:01 Degenerati on of lumbar interverte bral disc 39226665 Active 2020 Rolly Ceron MD Attn: Rufina villalpando,[address] [place], [address], [place] - [facility] 2 12:02:01 Spinal stenosis of lumbar region 64366349 Active 2020 CT 02/2021 severe central canal stenosis -sees specialist - sees pain mx Rolly Ceron MD Attn: Rufina villalpando,[address] [facility], [place], [address], [place] - [facility] 3 12:22:50 Fracture of thoracic spine 089639064 Active 2020 s/p tranpedicu lar fusion w/discecto my 02/2021 Rolly Ceron MD Attn: Rufina villalpando,[address] [facility], [place], [address], [place] [facility] 2 12:02:01 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 Procedures Surgical History Date Name Laterality Status Provider Name and Address Organization Details Recorded Time 3 Cerumen Removal completed Rolly Ceron MD Attn: Accounting,[address] [facility], [place], [address], [place] [facility] 10/01/2022 15:52:19 complete repair of rotator cuff completed Carmenza Valiente [place] - [facility] 09/26/2020 10:19:29 Back Surgery completed DEMI Lee - [facility] 03/14/2022 12:11:24 Imaging Results Imaging Date Name Status LastModified by Organization Details LastModified Time 12/14/2024 electrocardiogram completed [place] In-Offi ce Order Internal Use Only DO Not Attach Compendium DO Not Attach Compendium, Do Not Delete/merge, [id number] 12/14/2024 11:54:13 12/14/2024 electrocardiogram completed [email or web address] Informa tion not available 12/14/2024 17:44:14 Procedure Notes None recorded. Medical Equipment None Reported. Allergies No known drug allergies Medications Name Sig Start Date Stop Date Status Note LastModified by Organization Details LastModified Time Prescripti on - Renewal active Not Available Not Available Not Available cyclobenza benny 10 mg tablet TAKE 1 TABLET BY MOUTH EVERY 8 HOURS NEEDED FOR MUSCLE SPASM active Not Available Not Available No t Available terazosin 5 mg capsule Take 1 capsule every day by oral route. 12/08 completed not taking Not Available Not Available Not Available clonidine HCl 0.1 mg tablet Take 1 tablet by mouth twice daily 2024 active Not Available Not Available Not Avai lable gabapentin 600 mg tablet TAKE 1 TABLET BY MOUTH TWICE DAILY 03/17 completed not taking Not Available Not Available Not Available doxycyclin e hyclate 100 mg capsule Take 1 capsule twice a day by oral route for 7 days. 06/20 completed Not Available Not Available Not Available azithromyc in 250 mg tablet TAKE 2 TABLETS BY MOUTH ON DAY 1, AND THEN TAKE 1 TABLET BY MOUTH ONCE A DAY ON DAY 2 THROUGH DAY 5 09/26 completed Not Available Not Available Not Available tizanidine 4 mg tablet TAKE 1 TABLET BY MOUTH EVERY 6 HOURS NEEDED FOR MUSCLE SPASM 12/06 completed not taking Not Available Not Available Not Available benzonatat e 200 mg capsule TAKE 1 CAPSULE BY MOUTH THREE TIMES DAILY NEEDED 09/26 completed Not Available Not Available Not Available hydrocodon e 5 mg-acetami nophen 325 mg tablet TAKE 1 TABLET BY MOUTH EVERY DAY AT BEDTIME NEEDED 06/20 completed pain mx, not taking Not Available Not Available Not Available meloxicam 15 mg tablet TAKE 1 TABLET BY MOUTH ONCE DAILY WITH MEALS NEEDED FOR PAIN 09/11 completed Not Available Not Available Not Available lisinopril 20 mg tablet Take 1 tablet by mouth once daily 06/20 completed Not Available Not Available Not Available permethrin 5 % topical cream APPLY (THOROUG HLY MASSAGE INTO SKIN FROM HEAD TO SOLES OF FEET) BY TOPICAL ROUTE ONCE LEAVE ON FOR 8-14 HOURS, THEN REMOVE BY THOROUGH WASHING. active Not Available Not Available No t Available ciprofloxa henrietta 250 mg tablet Take 1 tablet every 12 hours by oral route for 7 days. 11/18 completed Not Available Not Available Not Available amlodipine 5 mg tablet TAKE 1 TABLET BY MOUTH ONCE DAILY 12/01 completed Not Available Not Available Not Available sulfametho xazole 800 mg-trimeth oprim 160 mg tablet TAKE 1 TABLET BY MOUTH TWICE DAILY FOR 7 DAYS 07/26 completed Not Available Not Available Not Available tramadol 50 mg tablet TAKE 1 TABLET BY MOUTH TWICE DAILY NEEDED 08/29 completed Not Available Not Available Not Available triamcinol one acetonide 0.1 % topical cream APPLY A THIN LAYER TO THE AFFECTED AREA(S) BY TOPICAL ROUTE 2 TIMES PER DAY for 1-2 weeks 2024 active Not Available Not Available Not Avai lable oxycodone- acetaminop hen 5 mg-325 mg tablet TAKE 1 TABLET BY MOUTH EVERY 4 HOURS NEEDED FOR PAIN 12/03 completed pain mx, not taking Not Available Not Available Not Available citalopram 20 mg tablet Take 1 tablet by mouth once daily 06/27 completed Not Available Not Available Not Available potassium chloride ER 20 mEq tablet,ext ended release(pa rt/cryst) TAKE 1 BY MOUTH ONCE DAILY WITH LASIX 03/12 completed Not Available Not Available Not Available tamsulosin 0.4 mg capsule TAKE 1 CAPSULE BY MOUTH ONCE DAILY WITH SUPPER active Not Available Not Available No t Available amlodipine 5 mg-benazep ril 20 mg capsule TAKE 1 CAPSULE BY MOUTH ONCE DAILY 04/13 completed Not Available Not Available Not Available baclofen 10 mg tablet TAKE 1 TABLET BY MOUTH THREE TIMES DAILY 12/03 completed Not Available Not Available Not Available cephalexin 500 mg capsule Take 1 capsule every 12 hours by oral route for 5 days. 12/14 completed Not Available Not Available Not Available simvastati n 20 mg tablet TAKE 1 TABLET BY MOUTH ONCE DAILY AT BEDTIME active Not Available Not Available No t Available ferrous sulfate 325 mg (65 mg iron) tablet Take 1 tablet by mouth once daily 2024 active Not Available Not Available Not Avai lable triamcinol one acetonide 0.1 % topical ointment APPLY A THIN LAYER TO THE AFFECTED AREA(S) BY TOPICAL ROUTE 2 TIMES PER DAY for 1-2 weeks 2024 active Not Available Not Available Not Avai lable mupirocin calcium 2 % topical cream APPLY A SMALL AMOUNT TO THE AFFECTED AREA BY TOPICAL ROUTE 3 TIMES PER DAY FOR 10 DAYS 05/07 completed Not Available Not Available Not Available gabapentin 300 mg capsule TAKE 1 CAPSULE BY MOUTH THREE TIMES DAILY 11/18 completed Not Available Not Available Not Available omeprazole 20 mg capsule,de layed release Take 1 capsule every day by oral route. 12/06 completed Not Available Not Available Not Available mupirocin 2 % topical ointment APPLY A SMALL AMOUNT OF OINTMENT TOPICALL Y TO THE AFFECTED AREA TWICE DAILY FOR 5 DAYS 09/06 completed Not Available Not Available Not Available furosemide 20 mg tablet TAKE 1 TABLET BY MOUTH ONCE DAILY 06/20 completed Not Available Not Available Not Available gabapentin 100 mg capsule TAKE 1 CAPSULE BY MOUTH ONCE DAILY AT BEDTIME 03/01 completed Not Available Not Available Not Available irbesartan 150 mg tablet TAKE 1 TABLET BY MOUTH ONCE DAILY active Not Available Not Available No t Available methylpred nisolone 4 mg tablets in a dose pack TAKE DIRECTED 04/24 completed Not Available Not Available Not Available albuterol sulfate HFA 90 mcg/actuat ion aerosol inhaler INHALE 2 PUFFS BY MOUTH THREE TIMES DAILY active Not Available Not Available No t Available ondansetro n 4 mg disintegra ting tablet 04/24 completed Not Available Not Available Not Available oxycodone 5 mg tablet TAKE 2 TABLETS BY MOUTH EVERY 8 HOURS NEEDED PAIN (SCALE 7 10) 12/06 completed special ist. not taking Not Available Not Available Not Available duloxetine 30 mg capsule,de layed release TAKE 1 CAPSULE BY MOUTH ONCE DAILY 03/17 completed Not Available Not Available Not Available duloxetine 60 mg capsule,de layed release TAKE 1 CAPSULE BY MOUTH ONCE DAILY active Not Available Not Available No t Available pregabalin 75 mg capsule TAKE 1 CAPSULE BY MOUTH TWICE DAILY 03/17 completed Not Available Not Available Not Available pregabalin 100 mg capsule Take 1 capsule by mouth twice daily active Not Available Not Available No t Available pregabalin 150 mg capsule TAKE 1 CAPSULE BY MOUTH TWICE DAILY. STOP GABAPENT IN. 09/26 completed Not Available Not Available Not Available pregabalin 200 mg capsule TAKE 1 TABLET BY MOUTH THREE TIMES DAILY 10/01 completed pain mx Not Available Not Available Not Available hydrochlor othiazide 12.5 mg tablet Take 1 tablet every day by oral route for 30 days. 2024 active Not Available Not Available Not Avai lable oxycodone 10 mg tablet 07/26 completed Not Available Not Available Not Available naloxone 4 mg/actuati on nasal spray CALL 911. ADMINIST ER A SINGLE SPRAY INTRANAS ALLY INTO ONE NOSTRIL UPON SIGNS OF OPIOID OVERDOSE . MAY REPEAT AFTER 3 MINUTES IF NO RESPONSE . 06/20 completed Not Available Not Available Not Available Vitals Date Recorded Body height Body mass index (BMI) Body weight Heart rate Respiratory rate Body temperature Oxygen saturation Oxygen saturation in Arterial blood by Pulse oximetry Systolic blood pressure Diastolic blood pressure Provider Name and Address Organization Details Last Updated DateTime 4 171.45 cm 33.4 kg/m2 10086.0 3 g 83 /min 14 /min 97.8 [degF] 96 % 96 % 122 mm[Hg] 78 mm[Hg] Carmenza Valiente [facility] 4 12:00:31 Date Recorded Body height Body mass index (BMI) Body weight Oxygen saturation Oxygen saturation in Arterial blood by Pulse oximetry Heart rate Respiratory rate Body temperature Systolic blood pressure Diastolic blood pressure Provider Name and Address Organization Details Last Updated DateTime 5 171.45 cm 32.4 kg/m2 21459.0 4 g 95 % 95 % 99 /min 16 /min 97.5 [degF] 127 mm[Hg] 78 mm[Hg] Carmenza Valiente MA [facility] 5 12:26:07 Date Recorded Body height Body mass index (BMI) Body weight Oxygen saturation Oxygen saturation in Arterial blood by Pulse oximetry Heart rate Respiratory rate Body temperature Body height Body mass index (BMI) Body weight Oxygen saturation Oxygen saturation in Arterial blood by Pulse oximetry Heart rate Respiratory rate Body temperature Systolic blood pressure Diastolic blood pressure Systolic blood pressure Diastolic blood pressure Provider Name and Address Organization Details Last Updated DateTime 5 171.45 cm 32.8 kg/m2 03239.4 6 g 95 % 95 % 95 /min 16 /min 97.2 [degF] 171.45 cm 32.8 kg/m2 18983.4 6 g 95 % 95 % 95 /min 16 /min 97.2 [degF] 146 mm[Hg] 80 mm[Hg] 146 mm[Hg] 80 mm[Hg] Carmenza Valiente MA [facility] 5 10:59:55 Date Recorded Body height Body mass index (BMI) Body weight Respiratory rate Heart rate Oxygen saturation Oxygen saturation in Arterial blood by Pulse oximetry Systolic blood pressure Diastolic blood pressure Provider Name and Address Organization Details Last Updated DateTime 5 171.45 cm 31.2 kg/m2 01247.6 6 g 18 /min 96 /min 96 % 96 % 132 mm[Hg] 74 mm[Hg] Nikky Doran LPN [facility] 5 11:08:42 Date Recorded Body height Body mass index (BMI) Body weight Oxygen saturation Oxygen saturation in Arterial blood by Pulse oximetry Heart rate Respiratory rate Body temperature Systolic blood pressure Diastolic blood pressure Provider Name and Address Organization Details Last Updated DateTime 5 171.45 cm 31.7 kg/m2 53419.5 9 g 96 % 96 % 62 /min 14 /min 97.3 [degF] 127 mm[Hg] 79 mm[Hg] Carmenza Valiente MA [facility] 5 11:34:39 Social History Question Answer Notes LastModified by Organizat ion Details LastModified Time Tobacco Smoking Status Never Smoker Carmenza Valiente MA [facility] 09/26/2020 10:15:39 Do You Have An Advance Directive? No [email or web address] Information not available 03/01/2021 Are You Blind Or Do You Have Difficulty Seeing? No Reading Glasses Information not available 05/22/2023 What Is Your Level Of Caffeine Consumption? Moderate Coffee Information not available 04/11/2021 How Much Tobacco Do You Chew? None Information not available 09/26/2020 In The 14 Days Before Symptom Onset, Have You Had Close Contact With A Laboratory-confir med COVID-19 While That Case Was Ill? No Information not available 09/26/2023 In The 14 Days Before Symptom Onset, Have You Had Close Contact With A Person Who Is Under Investigation For COVID-19 While That Person Was Ill? No Information not available 09/26/2023 Have You Been To An Area Known To Be High Risk For COVID-19? No Information not available 09/26/2023 Are You Deaf Or Do You Have Serious Difficulty Hearing? No [email or web address] Information not available 12/08/2020 What Type Of Diet Are You Following? REGULAR Information not available 09/26/2020 Which Illicit Or Recreational Drugs Have You Used? Denies Information not available 09/26/2020 What Is The Highest Grade Or Level Of School You Have Completed Or The Highest Degree You Have Received? [id number] [email or web address] Information not available 12/08/2020 Are There Any Guns Present In Your Home? No Information not available 09/26/2020 Marital Status Single Informatio n not available 09/26/2020 What Was The Date Of Your Most Recent Tobacco Screening? 01/10/2025 Information not available 01/10/2025 What Is Your Relationship Status? Single Information not available 12/08/2020 Do You Use Your Seat Belt Or Car Seat Routinely? Yes [email or web address] Information not available 12/08/2020 Seat Belts Used Routinely Yes Information not available 09/26/2020 Smoke Alarm In Home Yes Information not available 09/26/2020 Do You Have Smoke And Carbon Monoxide Detectors In Your Home? Yes [email or web address] Information not available 12/08/2020 General Stress Level Medium Information not available 09/26/2020 Do You Use Sunscreen Routinely? No Information not available 09/26/2020 Has Tobacco Cessation Counseling Been Provided? No Information not available 01/10/2025 Sex: Male Functional Status Question Answer Note LastModified by Organizat ion Details LastModified Time Do you use any illicit or recreational drugs? No [email or web address] Information not available 12/08/2020 Do you or have you ever used any other forms of tobacco or nicotine? No [email or web address] Information not available 12/08/2020 What is your level of alcohol consumption? Heavy Information not available 09/06/2024 Do you or have you ever used smokeless tobacco? Never used smokeless tobacco Information not available 09/26/2020 Are you currently employed? No [email or web address] Information not available 12/08/2020 Are you able to care for yourself? Yes family assitance Information not available 11/18/2022 What is your occupation? Retired Information not available 09/26/2020 Do you or have you ever used e-cigarettes or vape? Never used electronic cigarettes Information not available 09/26/2020 What is your exercise level? Moderate 3x [facility] [email or web address] Information not available 06/20/2023 Mental Status Question Answer Note LastModified by Organization D etails LastModified Time Do you feel stressed (tense, restless, nervous, or anxious, or unable to sleep at night)? [id number] Information not available 12/01/2024 Family History Relationship Description Onset Age of this Age Resolved Age Notes LastModified by Organization Details LastModified Time Father No current problems or disability Not available 09/26 10:15:30 Mother No current problems or disability Not available 09/26 10:15:30 Medical History Condition Response Coronary Artery Disease N Other N High Blood Pressure Y Atrial Fibrillation N Kidney or Bladder Problems N Thyroid Problems N GI Problems N Depression N COPD N Blood Clots N Skin Problems N Anemia N Heart Attack ([place]) N Anxiety Disorder Y Diabetes N Muscle, Joint, or Bone Problems N Seizures/Epilepsy N Acid Reflux (GERD) N Cancer N Stroke N Asthma N Allergies N High Cholesterol Y Hepatitis N Liver Disease N Headaches N Heart Failure N Osteoporosis N Immunizations Vaccine Type Date Status Note Provider Nam e and Address Organization Details Recorded Time Influenza, split virus, quadrivalent, preservative 0 completed Not Available [facility] 03/16/2021 20:09:10 Influenza, split virus, quadrivalent, preservative 1 completed Carmenza Valiente [place], [place] [facility] 08/29/2021 11:59:03 COVID-19, mRNA, LNP-S, PF, 30 mcg/0.3 mL dose 1 completed Carmenza Val[place], [place] [facility] 12/06/2021 12:17:17 COVID-19, mRNA, LNP-S, PF, 30 mcg/0.3 mL dose 1 completed Carmenza Val[place] [facility] 12/06/2021 12:17:37 COVID-19, mRNA, LNP-S, PF, 30 mcg/0.3 mL dose 2 completed Carmenza Val[place] [facility] 12/06/2021 12:18:00 influenza, unspecified formulation 3 completed Alda Ennis [place], [place] [facility] 06/27/2023 12:51:40 Past Encounters Encounter ID Performer Location Encounter Start Date Encounter Closed Date Diagnosis/Indication Diagnosis SNOMED-CT Code Diagnosis ICD10 Code Diagnosis Note [id number] MD Vivian Wynnhalto (Adult Med) [address] [place] [address] 09/26/2020 08:21:04 09/28/2020 06:14:29 Essential hypertension 23360197 I10 pt is on amlodipine /benazepri l, clonidine and terazosin ( has BPH) Hyperlipidemia 17144268 E78.49 pt is on simvastati n Chronic anxiety 31716221 9 F41.9 stable on celexa Generalize d aches and pains 82274562 R52 with arthritis of back/ knee and hand.pt is willing to try gabapentin . [id number] MD Vivian Wynnhalto (Adult Med) [address] [place] [address] 12/08/2020 08:20:41 12/11/2020 14:13:19 Essential hypertension 50744759 I10 pt is on amlodipine /benazepri l, clonidine and terazosin ( has BPH) Hyperlipidemia 38017210 E78.49 pt is on simvastati n Chronic anxiety 27812843 9 F41.9 stable on celexa Generalize d aches and pains 78678868 R52 with arthritis of back/ knee and hand. pt to continue gabapentin -pt can try 2 cap at [facility] and see if it hleps with pain Pain of ri ght shoulder joint 3588180271 0754542 M25.511 with h/o shoulder sx by in the past pt wants to try some med for pain pt to try mobic -avoid any other nsaid [id number] MD Patrick Wynn (Adult Med) [address] [place] [address] 02/09/2021 11:01:14 02/12/2021 12:31:49 Essential hypertension 23396464 I10 fairly stable -pt is on amlodipine /benazepri l, clonidine pt is off of terazosin ( has BPH) Hyperlipidemia 69172962 E78.49 pt is on simvastati n Chronic anxiety 99634987 9 F41.9 stable on celexa Generalize d aches and pains 56920861 R52 with arthritis of back/ knee and hand. pt to increase gabapentin 300mg hs Chronic back pain 029553 002 G89.29 with h/o back sx in the past -check xray -refer to pT [id number] MD Patrick Wynn (Adult Med) [address] [place] [address] 03/01/2021 13:58:06 03/02/2021 06:48:54 Spinal stenosis of lumbar region 42299338 M48.061 CT showed severe DDD with central canal stenosis - referred to ortho -has apt on 04/10/2021 Screening for malignant neoplasm of colon 241106445 Z12.11 Essential hypertension 53792440 I10 fairly stable -pt is on amlodipine /benazepri l pt to take clonidine tid pt is off of terazosin ( has BPH) [id number] MD Vivian Wynnhalto (Adult Med) [address] [place] [address] 04/11/2021 11:53:50 04/17/2021 07:41:20 Fracture of thoracic spine 527360201 S22.009A s/p fusion with discectomy 02/2021 Spinal wes nosis of lumbar region 54497101 M48.061 CT showed severe DDD with central canal stenosis - referred to ortho -has apt on 04/10/2021 Essential hypertension 30842718 I10 stable -pt is on amlodipine /benazepri l/clonidin e pt is off of terazosin ( has BPH) [id number] MD Patrick Wynn (Adult Med) [address] [place] [address] 05/17/2021 11:37:58 05/21/2021 17:45:01 Essential hypertension 26592374 I10 stable -pt is on amlodipine /lisinopri l/clonidin e bid Hyperlipidemia 49218314 E78.49 pt is on simvastati n Fracture o f thoracic spine 160280314 S22.009A s/p fusion with discectomy 02/2021 Spinal wes nosis of lumbar region 13812870 M48.061 CT showed severe DDD with central canal stenosis - referred to ortho -has apt on 04/10/2021 Chronic anxiety 40549249 9 F41.9 stable on celexa Screening for malignant neoplasm of colon 799919807 Z12.11 pt wants to wait for colonoscop y Overweight 002607083 E66 .3 Edema of l ower extremity 811945448 R60.0 following back sx - venous doppler -neg 05/12- pt to wear compressio n stocking Carcinoma of prostate 25 4424439 C61 s/p radiation and rx - pt was cleared by his urologist - check psa [id number] [facility] [address] [place] [address] 08/29/2021 11:23:11 08/30/2021 11:56:17 Essential hypertension 78080610 I10 stable -pt is on amlodipine /lisinopri l/clonidin e bid Hyperlipidemia 60250329 E78.49 pt is on simvastati n Chronic anxiety 66598728 9 F41.9 stable on celexa Fracture o f thoracic spine 564451849 S22.009A s/p fusion with discectomy 02/2021 Edema of l ower extremity 516489002 R60.0 following back sx - venous doppler -neg 05/12- pt to wear compressio n stocking-p t is on lyrica which can make leg swelling as well [id number] MD Patrick Wynn (Adult Med) [address] [place] [address] 12/06/2021 12:06:57 12/07/2021 07:19:24 Essential hypertension 97328221 I10 stable -pt is on amlodipine /lisinopri l/clonidin e bid Hyperlipidemia 69518684 E78.49 pt is on simvastati n Chronic anxiety 20502382 9 F41.9 stable on celexa Fracture o f thoracic spine 473210407 S22.009A s/p fusion with discectomy 02/2021 Spinal wes nosis of lumbar region 27179840 M48.061 CT showed severe DDD with central canal stenosis - referred to ortho -has apt on 04/10/2021 Screening for malignant neoplasm of colon 790479358 Z12.11 pt wants to wait for colonoscop y Edema of l ower extremity 148213962 R60.0 following back sx - venous doppler -neg 05/12- pt to wear compressio n stocking-p t is on lyrica which can make leg swelling as well [id number] MD Vivian Wynnhalto (Adult Med) [address] [place] [address] 03/14/2022 11:53:28 03/15/2022 12:29:32 Essential hypertension 47402365 I10 stable -pt is on amlodipine /lisinopri l/clonidin e bid Hyperlipidemia 74075927 E78.49 pt is on simvastati n Chronic anxiety 53016736 9 F41.9 stable on celexa Spinal wes nosis of lumbar region 15404045 M48.061 CT showed severe DDD with central canal stenosis - seen by neurosurge on at [facility] and planning for sx in 04/2022 and having pre-op labs Fracture o f thoracic spine 537547834 S22.009A s/p fusion with discectomy 02/2021 Screening for malignant neoplasm of colon 211227587 Z12.11 pt wants to wait for colonoscop y Obesity 135758717 E66.9 [id number] MD Patrick Wynn (Adult Med) [address] [place] [address] 07/26/2022 14:37:00 07/30/2022 10:53:04 Acute urinary tract infection 561143881 N39.0 with h/o recent back sx and was on pain pills with less ambulation - pt to keep good hydration [id number] MD Patrick Wynn (Adult Med) [address] [place] [address] 10/01/2022 11:46:27 10/03/2022 10:32:52 Essential hypertension 50390367 I10 stable -pt is on amlodipine /lisinopri l/clonidin e bid Hyperlipidemia 94998735 E78.49 pt is on simvastati n Chronic anxiety 42586335 9 F41.9 fair control - pt is on celexa Spinal wes nosis of lumbar region 96754641 M48.061 CT showed severe DDD with central canal stenosis - seen by neurosurge on at [facility] and planning for sx in 04/2022 and having pre-op labs Overweight 945122446 E66 .3 Renewal of prescription 678716324 Z76.0 Dysuria 21016766 R30.0 -pt could not give urine sample - will rx empiricall y/keep good hydration Impacted c erumen in right ear [id number] 057767 H61.21 -s/p ear irrigation /tolerated procedure [id number] MD Patrick Wynn (Adult Med) [address] [place] [address] 11/18/2022 12:07:46 11/20/2022 14:36:07 Edema of lower extremity 138408379 R60.0 with h/o back sx - venous doppler in the past -neg 05/12-possi monica due to med related since gabapentin dose increasept is taking gabapentin 1200 mg tid - pt to contact his specialist to lower his gabapentin - pt to wear compressio n stocking-c heck us-will try gentle diuresis Hyperlipidemia 22773036 E78.49 pt is on simvastati n [id number] MD Patrick Wynn (Adult Med) [address] [place] [address] 12/03/2022 11:54:13 12/10/2022 15:57:09 Edema of lower extremity 100338624 R60.0 with h/o back sx - venous doppler in the past -neg 05/12improv ing -possibly due to med related since gabapentin dose increasept was taking gabapentin 1200 mg tid - pt already informed his specialist to lower his gabapentin - pt to wear compressio n stocking-i mproved with gentle diuresis Obesity 345319019 E66.9 Spinal wes nosis of lumbar region 22486864 M48.061 CT showed severe DDD with central canal stenosis - seen by neurosurge on at [facility] and had sx in 04/2022- pt is in pain and did not tolerate higher dose of gabapentin - will try lyrica and short term use of hydrocodon e - pt is well aware of addiction potential - has apt with neuro sx next month [id number] [facility] ([facility] [address] [place] [address] 01/03/2023 13:54:06 01/06/2023 17:10:05 Essential hypertension 93723250 I10 stable -pt is on amlodipine /lisinopri l/clonidin e bid Hyperlipidemia 22861014 E78.49 pt is on simvastati n Chronic anxiety 69911333 9 F41.9 fair control - pt is on celexa Spinal wes nosis of lumbar region 21106218 M48.061 CT showed severe DDD with central canal stenosis - seen by neurosurge on at [facility] and had sx in 04/2022- pt is in pain and did not tolerate higher dose of gabapentin - will try lyrica and short term use of hydrocodon e - pt is well aware of addiction potential - has apt with pain mx on 01/22/23 Edema of l ower extremity 193338797 R60.0 with h/o back sx - venous doppler in the past -neg 05/12improv ing -possibly due to med related since gabapentin dose increasept was taking gabapentin 1200 mg tid - pt already informed his specialist to lower his gabapentin - pt to wear compressio n stocking-i mproving with gentle diuresis Screening for malignant neoplasm of colon 583174338 Z12.11 pt wants to wait for colonoscop y [id number] MD Vivian Wynnhalto (Adult Med) [address] [place] [address] 03/17/2023 11:47:20 03/20/2023 10:48:11 Essential hypertension 75013284 I10 stable -pt is on amlodipine /lisinopri l/clonidin e bid Hyperlipidemia 78917405 E78.49 pt is on simvastati n Chronic anxiety 16557888 9 F41.9 fair control - pt is on celexaseem s like pt was started on duloxetine as well per pain mx - pt is not sure whether he is taking duloxetine - pt to call with home meds Spinal wes nosis of lumbar region 71344300 M48.061 CT showed severe DDD with central canal stenosis - seen by neurosurge on at [facility] and had sx in 04/2022- pt sees pain mx and did not tolerate higher dose of gabapentin ( leg edema )- pt is on lyrica Edema of l ower extremity 666380861 R60.0 with h/o back sx - venous doppler in the past -neg 05/12improv ing -possibly due to med related since gabapentin dose increasept was taking gabapentin 1200 mg tid - pt is off of gabapentin now- pt to wear compressio n stocking [id number] MD Patrick Wynn (Adult Med) [address] [place] [address] 05/22/2023 13:43:59 05/23/2023 10:07:07 Skin lesion 25246260 L98.9 with multiple sores of [id number] MD Patrick Wynn (Adult Med) [address] [facility] [place] [address] 06/20/2023 11:47:13 06/22/2023 12:11:31 Skin lesion 52358753 L98.9 with multiple sores on lower leg and L/arm with infected wound-? bullous pemphigoid change lisinopril to irbesartan - advised pt to inspect his dog for fleas Essential hypertension 47341954 I10 stable -pt is on amlodipine /clonidine bidchange lisinopril to irbesartan Hyperlipidemia 58429438 E78.49 pt is on simvastati n Spinal wes nosis of lumbar region 86916199 M48.061 CT showed severe DDD with central canal stenosis - seen by neurosurge on at [facility] and had sx in 04/2022- pt sees pain mx and did not tolerate higher dose of gabapentin ( leg edema )- pt is on lyrica Chronic anxiety 48478195 9 F41.9 fair control - pt is on celexaseem s like pt was started on duloxetine as well per pain mx - pt is not sure whether he is taking duloxetine - pt to call with home meds [id number] MD Vivian Wynnhalto (Adult Med) [address] [place] [address] 06/27/2023 11:55:07 07/02/2023 12:42:20 Skin lesion 56192990 L98.9 with multiple sores on lower leg and L/arm with infected wound-? bullous pemphigoid changed lisinopril to irbesartan - improving a lot Essential hypertension 81450308 I10 stable -pt is on amlodipine /clonidine bidchanged lisinopril to irbesartan ( suspicious for bullous pemphigoid with lisinorpil ) Hyperlipidemia 51798095 E78.49 pt is on simvastati n Spinal wes nosis of lumbar region 53378690 M48.061 CT showed severe DDD with central canal stenosis - seen by neurosurge on at [facility] and had sx in 04/2022- pt sees pain mx and did not tolerate higher dose of gabapentin ( leg edema )- pt is on lyrica Chronic anxiety 87984691 9 F41.9 pt to discontinu e celexa since he is on duloxetine seems like pt was started on duloxetine as well per pain mx [id number] MD Vivian Wynnhalto (Adult Med) [address] [place] [address] 09/11/2023 10:23:17 09/12/2023 14:27:01 COVID-19 965755439 U07.1 -keep good hydration /supportiv e carept recently had covid booster a wk ago [id number] MD Patrick Wynn (Adult Med) [address] [place] [address] 09/26/2023 11:54:22 09/29/2023 11:49:01 Essential hypertension 70303333 I10 stable -pt is on amlodipine /clonidine bidchanged lisinopril to irbesartan ( suspicious for bullous pemphigoid with lisinorpil ) Hyperlipidemia 97775608 E78.49 pt is on simvastati n Chronic anxiety 19774901 9 F41.9 pt to discontinu e celexa since he is on duloxetine seems like pt was started on duloxetine as well per pain mx Spinal wes nosis of lumbar region 08617908 M48.061 CT showed severe DDD with central canal stenosis - seen by neurosurge on at [facility] and had sx in 04/2022- pt sees pain mx and did not tolerate higher dose of gabapentin ( leg edema )- pt is on lyrica Obesity 034582428 E66.9 [id number] Rolly Ceron MD [facility] (Adult Med) [address] [place] [address] 01/01/2024 11:53:01 01/09/2024 14:53:19 Essential hypertension 61253217 I10 stable -pt is on amlodipine /clonidine bidchanged lisinopril to irbesartan ( suspicious for bullous pemphigoid with lisinorpil ) Chronic anxiety 85345414 9 F41.9 pt to discontinu e celexa since he is on duloxetine seems like pt was started on duloxetine as well per pain mx Hyperlipidemia 41674967 E78.49 pt is on simvastati n Fracture o f thoracic spine 835668161 S22.009A s/p fusion with discectomy 02/2021 Generalize d aches and pains 96365338 R52 with arthritis of back/ knee and hand. pt to increase gabapentin 300mg hs Obesity 819928955 E66.9 Skin lesion 01862576 L98 .9 with multiple sores on lower leg and L/arm-recu rring-? bullous pemphigoid changed lisinopril to irbesartan Renewal of prescription 287761732 Z76.0 Difficulty walking 32660 2003 R26.2 with back pain with DDD of spine and thoracic spine fx /leg weekness- pt needs walker to complete his adl - pt is not safe at [place] [id number] Marco Moses MD [facility] [address] [place] [address] 03/12/2024 14:32:01 03/30/2024 10:59:11 Infestation by bed bug 89370611 B88.8 -Lesions appear to be consistent with bed bug bites.-Pat ient agreeable to treatment with permethrin topical cream.-SECTION LEADER AND MACHINE SETTER provided bed bug care instructio ns.-Patien t agreeable to treating scabbed/op en lesions with mupirocin cream BID for 5 days.-Lori ent to follow up with Dr. Ceron for further management . [id number] MD Patrick Wynn (Adult Med) [address] [place] [address] 05/07/2024 11:41:57 05/17/2024 12:58:46 Essential hypertension 51608140 I10 stable -pt is on amlodipine /clonidine bidchanged lisinopril to irbesartan ( suspicious for bullous pemphigoid with lisinorpil ) Hyperlipidemia 21846949 E78.49 pt is on simvastati n Chronic anxiety 78170762 9 F41.9 pt to discontinu e celexa since he is on duloxetine seems like pt was started on duloxetine as well per pain mx Spinal wes nosis of lumbar region 27968744 M48.061 CT showed severe DDD with central canal stenosis - seen by neurosurge on at [facility] and had sx in 04/2022- pt sees pain mx and did not tolerate higher dose of gabapentin ( leg edema )- pt is on lyrica Screening for malignant neoplasm of colon 297434998 Z12.11 pt wants to wait for colonoscop y Skin lesion 86142451 L98 .9 with multiple sores on lower leg and L/arm-recu rringpt has 2 dogs at home /pt sleeps at recliner per ptRefer to derm [id number] MD Patrick Wynn (Adult Med) [address] [place] [address] 09/06/2024 11:50:09 09/08/2024 17:09:52 Essential hypertension 46737045 I10 stable -pt is on amlodipine /clonidine bidchanged lisinopril to irbesartan ( suspicious for bullous pemphigoid with lisinorpil ) Hyperlipidemia 92974943 E78.49 pt is on simvastati n Chronic anxiety 01803916 9 F41.9 pt to continue duloxetine Spinal wes nosis of lumbar region 10234653 M48.061 CT showed severe DDD with central canal stenosis - seen by neurosurge on at [facility] and had sx in 04/2022- pt sees pain mx and did not tolerate higher dose of gabapentin ( leg edema )- pt is on lyrica [id number] MD Patrick Dueñas (Adult Med) [address] [place] [address] 2024 11:58:56 11/24/2024 09:36:45 Neuropathy 497797386 G62.9 -Patient reports pain is mainly controlled with lyrica.-Jeff farmer agreeable to trying pain management with [facility] Dr. Blum-Manasa DS ordered-ne gative-Felipe trolled substance agreement signed-Felipe medrano current therapy: pregabalin 100mg BID PRN-f/u in 1 month to establish care. [id number] MD Patrick Dueñas (Adult Med) [address] [place] [address] 12/01/2024 10:56:55 12/24/2024 15:15:56 Positive screening for depression on PHQ-9 (Patient Health Questionnaire 9) 8620044998 01433 Z13.31 -Denies active suicidal or homicidal thoughts. Denies history of suicidal or homicidal thoughts.- patient reports his mood is stable at this time-Advis ed counseling , psychologi st referral placed-Therese shelton was educated on his prescribed medication s, rationale for medication s, dosing indication s, adverse reactions, black box warning, dosing indication s, SE (e.g., decreased libido, weight gain, gynecomast ia, and galactorrh ea) and the risks and benefits.- Patient instructed to go to ER or call 911 or 988 for crisis (e.g., suicidal behaviors, suicidal ideations, intent or plan emerge). Additional ly, patient has suicide hotline #.-dmitry nue current therapy: Duloxetine 60 mg daily-Advi sed patient to call clinic with questions Essential hypertension 17460067 I10 -Uncontrol led-BP today in clinic: 146/80mmHg (Goal <130/80)-C ontinue current therapy: clonidine 0.1mg BID, irbesartan 150mg daily-Tren d renal function-R ecommended DASH diet-Discu ssed importance of regular exercise and/or physical activity inthe control of blood pressure.- Discussed low sodium diet w/ <2 g daily, avoidance of caffeine, appropriat e sleep hygiene and quality with >6 hours of uninterrup bell sleep.-Pat ient to call the clinic with BP <110/70mmH g or >140/90mmH g-Failed lisinopril therapy-di scontinue amlodipine due to LE swelling-P atient agreeable to starting hydrochlor othiazide 12.5mg daily-F/u in 1 month-card iologist referral placed Screening for malignant neoplasm of colon 741380128 Z12.11 -Patient agreeable to colofit screening. HIV screen ing declined 0270807603 39022 Z53.20 Abdominal aortic aneurysm screening 419019229 Z13.6 -Patient agreeable to AAA screening Edema of l ower extremity 985247927 R60.0 -patient has history of bilateral lower extremity swelling. Symptoms were previously treated by primary care, but no workup was completed- patient agreeable to checking BNP and magnesium level-card iologist referral placed for further evaluation -ER precaution s advised Atopic dermatitis 036320 01 L20.9 -rash noted consistent with atopic dermatitis -patient agreeable to triamcinol one therapy b.i.d. for 1-2 weeks. SECTION LEADER AND MACHINE SETTER discussed risks of steroid treatment including thinning of skin.-lori ent to follow up in clinic if symptoms worsen or do not improve. Hyperlipidemia 21681226 E78.5 -controlle d-Continue current therapy: Simvastati n 20 mg daily-Rech radhika lipid panel-Tren d LFTs-Patie nt educated on the importance of diet, exercise and medication in the management of this condition. 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 He drinks 2-4 beers daily for most of his life.-chec k vitamin B12, folate, and vitamin B1 levels-SECTION LEADER AND MACHINE SETTER discussed risks daily alcohol intake. SECTION LEADER AND MACHINE SETTER recommende d cessation of alcohol. Patient verbalized understand ing. Anemia 664190250 D64.9 -last hemoglobin /hematocri t levels: 11.5/37.5 (05/07/24)- check CBC, iron panel Screening for malignant neoplasm of prostate 848400481 Z12.5 Infection of skin 428387 000 L08.9 -with patient's bilateral lower extremity swelling and mild erythema, patient agreeable to treatment of skin infection cephalexin 500 mg b.i.d. for 5 days in caution for cellulitis . SECTION LEADER AND MACHINE SETTER advised patient to consume OTC probiotic or yogurt while on antibiotic therapy.-p atient to follow up in clinic if symptoms worsen or do not improve-ER precaution s advised Long-term drug therapy 933371159 Z79.210 [id number] Robin Hastings MD [facility] [place] [facility] [address] [place] [address] 12/14/2024 10:53:31 12/20/2024 14:07:54 Essential hypertension 19342497 I10 Pulmonary hypertension 38824074 I27.20 Dyspnea on exertion 6084 5006 R06.09 Bilateral lower leg edema 456181213 R60.0 Obesity 112242796 E66.9 [id number] Marco Moses MD [facility] (Adult Med) [address] [place] [address] 01/10/2025 11:09:05 01/12/2025 14:27:19 Essential hypertension 71503300 I10 -Controlle d-Manageme nt per Cardiology -BP today in clinic: 127/79mmHg (Goal <130/80)-C ontinue current therapy: clonidine 0.1mg BID, irbesartan 150mg daily, hydrochlor othiazide 12.5mg daily-Tren d renal function-R ecommended DASH diet-Discu ssed importance of regular exercise and/or physical activity inthe control of blood pressure.- Discussed low sodium diet w/ <2 g daily, avoidance of caffeine, appropriat e sleep hygiene and quality with >6 hours of uninterrup bell sleep.-Pat ient to call the clinic with BP <110/70mmH g or >140/90mmH g-Failed lisinopril therapy-di scontinue amlodipine due to LE swelling-f /u in 3 months Edema of l ower extremity 538631873 R60.0 -patient has history of bilateral lower extremity swelling. Symptoms were previously treated by primary care, but no workup was completed- patient agreeable to checking BNP and magnesium level-card iologist referral placed for further evaluation -ER precaution s advised12/22 10/16-Swell ing has improved.- Continue current therapy Infestatio n by bed bug 36263268 B88.8 -Lesions appear to be consistent with bed bug bites.-Pat ient agreeable to treatment with permethrin topical cream.-SECTION LEADER AND MACHINE SETTER provided bed bug care instructio ns.-Patien t agreeable to treating scabbed/op en lesions with mupirocin cream BID for 5 days.-Lori ent to follow up with Dr. Ceron for further management . Chronic anxiety 52312770 9 F41.9 -Denies active suicidal or homicidal thoughts. Denies history of suicidal or homicidal thoughts.- patient reports his mood is stable at this time-Advis ed counseling , psychologi st referral placed-Pat ient was educated on his prescribed medication s, rationale for medication s, dosing indication s, adverse reactions, black box warning, dosing indication s, SE (e.g., decreased libido, weight gain, gynecomast ia, and galactorrh ea) and the risks and benefits.- Patient instructed to go to ER or call 911 or 988 for crisis (e.g., suicidal behaviors, suicidal ideations, intent or plan emerge). Additional ly, patient has suicide hotline #[phone].-dmitry nue current therapy: Duloxetine 60 mg daily-Advi sed patient to call clinic with questions Health Concerns Section Related Observation LastModified by Organization Detai ls LastModified Time None Recorded Concern Status LastModified by Organization Details LastModified Time None Recorded Advance Directives Directive N: Payers Encounter Date Sequence Insurance Name Policy Number Policy Wilson Covered Member ID Wilson Member ID Guarantor Name 09/06/2024 2 [place] OR MEDICARE REPLACEMENT PRIMARY) Souleymane Eldridge [id number] Souleymane Eldridge 09/06/2024 1 [place] Souleymane Eldridge [id number] Souleymane Eldridge 2024 2 [place] REPLACEMENT [place]) Souleymane Eldridge [id number] Souleymane Eldridge 2024 1 [place] Souleymane Eldridge [id number] Souleymane Eldridge 12/01/2024 2 [place] OR MEDICARE REPLACEMENT [place]) Souleymane Sanchez Chente [id number] Souleymane Eldridge 12/01/2024 1 [place] Souleymane Eldridge [id number] Souleymane Eldridge 12/14/2024 2 [place] OR MEDICARE REPLACEMENT PRIMARY) Souleymane Sanchez Chente [id number] Souleymane Eldridge 12/14/2024 1 [place] Souleymane Eldridge [id number] Souleymane Eldridge 01/10/2025 2 [place] OR MEDICARE REPLACEMENT [place]IMARY) Souleymane Sanchez Chente [id number] Souleymane Eldridge 01/10/2025 1 [place] Souleymane Eldridge [id number] Souleymane Sanchez Chente Notes Date Note Type Note Provider Name and Address Organization Details Recorded Time 09/06/2024 text/html Anxiety/Depressi onRepo rted bypatient.Quality:symp toms improved Severity:denies suicidal ideations Context:no major life stressors; Retired/ lives with brother Modifying Factors:medications as directed Associated Symptoms:denies homicidal ideationsBack PainReported bypatient.Location:corry n radiating to the legs Severity:moderate (5-7) Duration:chronic Onset/Timing:recurrent episode Context:prior back problems (had back sx) Aggravating Factors:movement/posit ioning Associated Symptoms:no incontinence;weak limbs;numbness of the legs/feetNotes:CT showed severe DD/stenosis of lumbar and thoracic spine and also fx of thoracic spine - s/p sx 02/2021HyperlipidemiaRe ported bypatient.Duration:chr onic Control:improving Current Therapy:currently taking: (meds as prescribed) Compliance:compliant with diet; exercises Complications:no coronary artery disease Risk Factors:positive family history of premature arteriosclerotic cardiovascular disease;hypertension;s mokingHypertension F/UReported bypatient.Associated Symptoms:no dizziness; no chest pain; no palpitations;edema Lifestyle:regular exercise Medications:taking medications as directed; no side effects from medication Rolly Ceron MD Attn: Accounting,[address] [facility], [place], [address], [facility] 09/06/2024 15:05:09 2024 text/html Patient presents to the clinic with acute concerns for neuropathy. Patient previously established with Dr. Fabi Ceron for primary care. Pateint's past medical history includes: prostate cancer, anxiety, hypertension, transpedicular fusion with discectomy, hyperlipidemia, spinal stenosis, and rotator cuff repair. Neuropathy-Patient takes lyrica for bilateral leg neuropathy.-Patient reports he has been on lyrica since 2020.-Patient reports he previously tried gabapentin, hydrocodone, meloxicam, oxycodone, and tramadol therapies.-Patient reports he tried seeing pain management, but he did not want to be on opioid therapies. IVAN PINEDA Attn: Accounting,[address] [facility], [place], [address], [facility] 2024 17:18:40 12/01/2024 text/html Patient presents to the clinic to establish care. Patient was previously established with Dr. Dunlap for primary care.Other providers:Dr. Duckworth-neurosurgeon -Medical Hx/Surgical Hx: prostate cancer, anxiety, chronic back pain, spinal fusion and discectomy, hyperlipidemia, right and left shoulder rotator cuff repairs, and hypertension. -Family hx:Mother: -old ageFather: -CHF -Tobacco/Drug/Alcohol Use:Denies history of tobacco and drug use.Patient reports alcohol use. He drinks 2-4 beers daily for most of his life. Chicken pox: Denies history of chicken pox. Marital status: single Sexually active: yes Occupation: Retired-worked for [employer] Highest level of education: high school diploma Allergies:NKDA Acute Concerns-Patient reports he started having swelling 2 years ago. Patient reports this went away on it's own. PCP previously had patient on furosemide in 2022.-Patient reports bilateral lower extremity swelling started 1 month ago. Patient reports pain to bilateral lower extremities.-Patient has gained 3lbs in one week.-Denies having dyspnea or chest pain IVAN PINEDA Attn: Accounting,[address] [facility], [place], [address], [facility] 12/24/2024 11:38:16 12/14/2024 text/html I had the pleasu re of seeing this patient as a new consultation from Yareli Huitron DNP for recommendations regarding evaluation and management of cardiac etiology of dyspnea and lower extremity edema. Pleasant 64-year-old hypertension, family history of CAD with [place] in his father, obesity and mixed hyperlipidemia presents for evaluation of lower extremity edema. Symptoms of lower extremity edema have improved marginally after addition of HCTZ. Reports NYHA class 2 dyspnea and walks with a walker. Denies chest pain or pressure. Denies orthopnea or PND. Denies palpitations, presyncope or syncope. Denies recent COVID. Cardiac diagnostics:Twelve lead EKG 12/14/2024: Sinus rhythm, no ST-T changes, normal QTC and QRSd Transthoracic echocardiogram 12/12/2022, [facility]: LVEF greater than 70%, grade 1 diastolic dysfunction, paradoxical septal motion consistent with RV volume/power pressure overload with normal RV size and function, mild aortic sclerosis with no aortic stenosis, mild pulmonary hypertension with RVSP 41 mmHg. Robin Hastings MD Attn: Accounting,[address] [facility], [place], [id number], [facility] 12/14/2024 12:54:06 01/10/2025 text/html Patient presents to the clinic for hypertension follow up. Patient's past medical history includes: prostate cancer, anxiety, chronic back pain, spinal fusion and discectomy, hyperlipidemia, right and left shoulder rotator cuff repairs, and hypertension.Other providers:Dr. Duckworth-neurosurgeon -BP today in clinic: 127/79mmHg-Patient reports compliance with blood pressure medications. IVAN PINEDA Attn: Accounting,[address] [facility], [place], [address], [facility] 01/10/2025 13:50:36
[2025-02-01 08:08] LABS: Mean Platelet Volume 8.8 fl (7.4-10.4); Platelet Count Result 202 k/mm3 (150-375)
[2025-02-01 08:21] LABS: INR 0.9; Prothrombin Time 12.4 Seconds (11.1-14.7)
[2025-02-01 08:24] VITALS: BP 151/90; PULSE 85; RESP 18; TEMP 36.4; O2SAT 98
[2025-02-01 10:21] VITALS: BP 163/95; PULSE 83; RESP 16; O2SAT 100
--- NOTE | 2025-02-01 10:45 | SUR.PHASEII ---
Patient meets discharge criteria at this time. MD was unable to preform procedure and states patient is safe to discharge. Patient is in room waiting for his ride at this time.
[2025-02-01 11:53] VITALS: BP 154/96; PULSE 82; RESP 18; O2SAT 100
== END 2025-02-01 11:55 | disposition home or self-care (01) ==
PROVIDERS: Referring Provider Neurological Surgery; Visit Provider Radiology Diagnostic Radiology
DX: Z01.818 Encounter for other preprocedural examination (principal); M43.06 Spondylolysis, lumbar region; R29.890 Loss of height; M48.05 Spinal stenosis, thoracolumbar region; M48.061 Spinal stenosis, lumbar region without neurogenic claudication; Z98.1 Arthrodesis status
CPT/HCPCS: 36415; 62305; 72131; 85049; 85610